=== PATIENT | male | born 1970 | race Caucasian/White ===

== ENCOUNTER 2016-06-06 15:53 | Inpatient (IN) | payer SELFPAY ==
[2016-06-06] VITALS (13 sets, daily range): BP systolic 128–182; BP diastolic 81–124; PULSE 98–178; RESP 18–20; TEMP 98.1; O2SAT 93–96
[~2016-06-06] VITALS: Ht 167.6 cm; Wt 81.5 kg
--- NOTE | 2016-06-06 16:14 | PD ---
HPI Chief Complaint: Respiratory Symptoms Time Seen by Provider: 16:14 Travel History International Travel<30 days: No Contact w/Intl Traveler<30days: No Traveled to known affect area: No History of Present Illness HPI 46-year-old male with no significant medical history presents to emergency department for evaluation of shortness of breath worsening over the last 2 weeks. He thought that this was secondary to allergies or maybe. He had taken some Mucinex but his symptoms did not resolve. Patient states he has felt his heart was racing. He is unable to lie flat without significant shortness of breath. Has a pain in his right neck and shoulder that is intermittent. Denies any recent illnesses, fever, or chills. PFSH Past Medical History Medical History: Denies Significant Hx Diminished Hearing: No Tetanus Vaccination: > 5 Years Influenza Vaccination: No Past Surgical History Appendectomy: Yes Social History Alcohol Use: No Tobacco Use: Yes Substance Use: Yes (JONATHAN) Allergies-Medications (Allergen,Severity, Reaction): Coded Allergies: No Known Allergies (Unverified , 06/06/16) Reported Meds & Prescriptions Reported Meds & Active Scripts Active No Active Prescriptions or Reported Medications Review of Systems Except as stated in HPI: all other systems reviewed are Neg Physical Exam Narrative GENERAL: Well-nourished male patient, lying in bed, appears very fearful but is in no acute distress SKIN: Warm and dry. HEAD: Atraumatic. Normocephalic. EYES: Pupils equal and round. No scleral icterus. No injection or drainage. ENT: No nasal bleeding or discharge. Mucous membranes pink and moist. NECK: Trachea midline. No JVD. CARDIOVASCULAR: Supraventricular rate. RESPIRATORY: No accessory muscle use. Diminished to auscultation. Breath sounds equal bilaterally. GASTROINTESTINAL: Abdomen soft, non-tender, nondistended. Hepatic and splenic margins not palpable. MUSCULOSKELETAL: Extremities without clubbing, cyanosis. 1+ bilateral lower extremity edema. No obvious deformities. NEUROLOGICAL: Awake and alert. No obvious cranial nerve deficits. Motor grossly within normal limits. Five out of 5 muscle strength in the arms and legs. Normal speech. PSYCHIATRIC: Appropriate mood and affect; insight and judgment normal. Data Data Last Documented VS Vital Signs Date Time Temp Pulse Resp B/P Pulse Ox O2 Delivery O2 Flow Rate FiO2 06/06/16 17:23 112 20 142/89 96 Nasal Cannula 3 06/06/16 15:59 98.1 Orders Electrocardiogram (06/06/16 ) Basic Metabolic Panel (Bmp) (06/06/16 16:13) B-Type Natriuretic Peptide (06/06/16 16:13) Ckmb (Isoenzyme) Profile (06/06/16 16:13) Complete Blood Count With Diff (06/06/16 16:13) D-Dimer (06/06/16 16:13) Magnesium (Mg) (06/06/16 16:13) Prothrombin Time / Inr (Pt) (06/06/16 16:13) Act Partial Throm Time (Ptt) (06/06/16 16:13) Troponin I (06/06/16 16:13) Chest, Single Ap (06/06/16 16:13) Ecg Monitoring (06/06/16 16:13) Bilateral Bp Monitoring (06/06/16 16:13) Iv Access Insert/Monitor (06/06/16 16:13) Oximetry (06/06/16 16:13) Oxygen Administration (06/06/16 16:13) Sodium Chloride 0.9% Flush (Ns Flush) (06/06/16 16:15) Diltiazem Inj (Cardizem Inj) (06/06/16 16:15) Thyroid Stimulating Hormone (06/06/16 16:19) Electrocardiogram (06/06/16 ) Diltiazem Inj (Cardizem Inj) (06/06/16 16:45) Vital Signs (Adult) Q15MX4,Q4H (06/06/16 17:05) Radio Electronics Technician / Telemetry HAILE.Q8H (06/06/16 17:05) Cardiac Rhythm HAILE.Q8H (06/06/16 17:05) ^ Notify Dr: Other (06/06/16 17:05) Diltiazem Inj (Cardizem Inj) (06/06/16 17:15) CKMB (06/06/16 16:20) CKMB% (06/06/16 16:20) Ventilation & Perfusion Scan (06/06/16 ) Admit Order (Ed Use Only) (06/06/16 18:33) Labs Laboratory Tests Test 06/06/16 16:20 White Blood Count 11.2 TH/MM3 Red Blood Count 4.75 MIL/MM3 Hemoglobin 16.0 GM/DL Hematocrit 46.8 % Mean Corpuscular Volume 98.5 FL Mean Corpuscular Hemoglobin 33.7 PG Mean Corpuscular Hemoglobin 34.2 % Concent Red Cell Distribution Width 14.0 % Platelet Count 274 TH/MM3 Mean Platelet Volume 9.5 FL Neutrophils (%) (Auto) 72.4 % Lymphocytes (%) (Auto) 19.3 % Monocytes (%) (Auto) 6.8 % Eosinophils (%) (Auto) 0.4 % Basophils (%) (Auto) 1.1 % Neutrophils # (Auto) 8.1 TH/MM3 Lymphocytes # (Auto) 2.2 TH/MM3 Monocytes # (Auto) 0.8 TH/MM3 Eosinophils # (Auto) 0.0 TH/MM3 Basophils # (Auto) 0.1 TH/MM3 CBC Comment DIFF FINAL Differential Comment Prothrombin Time 13.4 SEC Prothromb Time International 1.2 RATIO Ratio Activated Partial 28.0 SEC Thromboplast Time D-Dimer Quantitative (PE/DVT) 1.15 MG/L FEU Sodium Level 138 MEQ/L Potassium Level 4.3 MEQ/L Chloride Level 100 MEQ/L Carbon Dioxide Level 21.9 MEQ/L Anion Gap 16 MEQ/L Blood Urea Nitrogen 11 MG/DL Creatinine 1.50 MG/DL Estimat Glomerular Filtration 51 ML/MIN Rate Random Glucose 93 MG/DL Calcium Level 9.4 MG/DL Magnesium Level 1.9 MG/DL Total Creatine Kinase 107 U/L Creatine Kinase MB 2.6 NG/ML Troponin I 0.03 NG/ML B-Type Natriuretic Peptide 553 PG/ML Thyroid Stimulating Hormone 3.540 uIU/ML 3rd Gen [facility] Medical Decision Making Medical Screen Exam Complete: Yes Emergency Medical Condition: Yes Medical Record Reviewed: Yes Differential Diagnosis New-onset A. fib versus A. fib with RVR versus SVT versus ACS versus CHF versus electrolyte abnormality Narrative Course 46-year-old male presents emergency department for evaluation and heart rate racing 2 weeks. Patient heart rate 160s to 170s. Rhythm was unable to decipher clearly at that time. He discussed the patient my attending physician Dr. Evans. Patient was given bolus of Cardizem. His rate slowed to 140s. Repeat EKG shows A. fib with RVR. Patient was given another bolus of Cardizem. CBC and CMP are without acute concern. Patient does have renal insufficiency. Troponin is 0.03. BNP is 553. Chest x-ray shows a small right pleural-based opacity likely representing a small pleural effusion with associated atelectasis at the right base. Mild enlarged cardiac silhouette. After 2 boluses of Cardizem, patient's heart rate remains greater than 120 bpm consistently. Patient is started on Cardizem drip. Ddimer is elevated 1.15. Due to renal insufficiency, VQ scan is ordered. I discussed the pt with Dr. العراقي. [facility]. Diagnosis Primary Impression: New onset a-fib Additional Impressions: Atrial fibrillation with RVR Dyspnea Qualified Code: R06.02 - Shortness of breath Elevated d-dimer Admitting Information Admitting Physician Requests: Admit Scripts No Active Prescriptions or Reported Meds Condition: Stable Thelma Yap Jun 06, 2016 16:14
[2016-06-06] MEDS ORDERED: DILTIAZEM HCL 25 MG/5 ML VIAL IV PUSH ONE (16:15)
[2016-06-06] MEDS ORDERED: SODIUM CHLORIDE 0.9% FLUSH 5 ML FLUSH IVF PRN (16:15)
--- NOTE | 2016-06-06 16:23 | PD ---
Data Data Last Documented VS Vital Signs Date Time Temp Pulse Resp B/P Pulse Ox O2 Delivery O2 Flow Rate FiO2 06/06/16 16:16 166 20 177/120 96 Nasal Cannula 3 171/124 06/06/16 15:59 98.1 Orders Electrocardiogram (06/06/16 ) Basic Metabolic Panel (Bmp) (06/06/16 16:13) B-Type Natriuretic Peptide (06/06/16 16:13) Ckmb (Isoenzyme) Profile (06/06/16 16:13) Complete Blood Count With Diff (06/06/16 16:13) D-Dimer (06/06/16 16:13) Magnesium (Mg) (06/06/16 16:13) Prothrombin Time / Inr (Pt) (06/06/16 16:13) Act Partial Throm Time (Ptt) (06/06/16 16:13) Troponin I (06/06/16 16:13) Chest, Single Ap (06/06/16 16:13) Ecg Monitoring (06/06/16 16:13) Bilateral Bp Monitoring (06/06/16 16:13) Iv Access Insert/Monitor (06/06/16 16:13) Oximetry (06/06/16 16:13) Oxygen Administration (06/06/16 16:13) Sodium Chloride 0.9% Flush (Ns Flush) (06/06/16 16:15) Diltiazem Inj (Cardizem Inj) (06/06/16 16:15) Thyroid Stimulating Hormone (06/06/16 16:19) MDM Supervised Visit with CAT: Yes Interpretation(s) EKG shows a narrow complex tachycardia with a rate of 170 Narrative Course I, Dr. Evans, have reviewed the advance practice practitioner's documentation and am in agreement, met with the patient face to face, made the diagnosis, and the medical decision making was done by me. *My assessment and Findings: Patient has a narrow complex tachycardia. He appears very frightened. Scripts No Active Prescriptions or Reported Meds Yadira Evans MD Jun 06, 2016 16:23
[2016-06-06] MEDS ORDERED: DILTIAZEM HCL 25 MG/5 ML VIAL IV PUSH PRN (16:45)
[2016-06-06 16:54] LABS: AUTOMATED NEUTROPHIL # 8.1 TH/MM3 (1.8-7.7); BASOPHIL # 0.1 TH/MM3 (0-0.2); BASOPHIL % 1.1 % (0.0-2.0); EOSINOPHIL % 0.4 % (0.0-4.0); HEMATOCRIT 46.8 % (39.0-51.0); HEMO FLAGS DIFF FINAL; LYMPH % 19.3 % (9.0-44.0); LYMPHOCYTE # 2.2 TH/MM3 (1.0-4.8); MEAN CELL VOLUME 98.5 FL (80.0-100.0); MEAN CORPUSCULAR HEMOGLOBIN 33.7 PG (27.0-34.0); MEAN CORPUSCULAR HGB CONC 34.2 % (32.0-36.0); MONO % 6.8 % (0.0-8.0); NEUT % 72.4 % (16.0-70.0); PLATELET COUNT 274 TH/MM3 (150-450); RED BLOOD COUNT 4.75 MIL/MM3 (4.50-5.90); WHITE BLOOD COUNT 11.2 TH/MM3 (4.0-11.0)
--- NOTE | 2016-06-06 17:01 | RADRPT ---
EXAM DATE/TIME: 06/06/2016 16:20 [facility] COMPARISON: No previous studies available for comparison. INDICATIONS : Short of Breath, Chest Pain. MEDICAL HISTORY : None. SURGICAL HISTORY : None. ENCOUNTER: Initial ACUITY: 2 weeks PAIN SCORE: 3/10 LOCATION: Bilateral chest FINDINGS: Portable AP view of the chest demonstrates mildly enlarged cardiac silhouette. Lungs are mildly under inflated. There is a small right pleural-based opacity. No pneumothorax is visualized. Bones and soft tissues demonstrate no acute finding. CONCLUSION: 1. Small right pleural-based opacity likely representing a small pleural effusion with associated ate lectasis at the right base. 2. Mildly enlarged cardiac silhouette. Emerson Carvalho MD on June 06, 2016 at 16:59 Board Certified Radiologist. This report was verified electronically.
[2016-06-06 17:17] LABS: ANION GAP 16 MEQ/L (5-15); BICARBONATE 21.9 MEQ/L (21.0-32.0); BLOOD UREA NITROGEN 11 MG/DL (7-18); CHLORIDE 100 MEQ/L (98-107); GLOMERULAR FILTRATION RATE 51 ML/MIN (>89); MAGNESIUM 1.9 MG/DL (1.5-2.5); POTASSIUM 4.3 MEQ/L (3.5-5.1); SODIUM (NA) 138 MEQ/L (136-145)
[2016-06-06 17:21] LABS: CREATINE KINASE 107 U/L (39-308)
[2016-06-06 17:22] LABS: INTERNATIONAL NORMALIZED RATIO 1.2 RATIO; PROTHROMBIN TIME - PATIENT 13.4 SEC (9.8-11.6)
[2016-06-06] MEDS: DILTIAZEM INJ 125 MG in SODIUM CHLORIDE 0.9% INJ 100 ML IV SCH (17:29)
[2016-06-06 17:34] LABS: CKMB 2.6 NG/ML (0.5-3.6)
--- NOTE | 2016-06-06 19:25 | HHI.HP ---
[facility] No Primary Care Physician Admission Diagnosis dyspnea; new onset AFib; Afib c RVR; elevated Ddimer; elevated BNP Diagnoses: (1) New onset a-fib Diagnosis: Principal (2) Elevated d-dimer Diagnosis: Principal (3) Elevated brain natriuretic peptide (BNP) level Diagnosis: Principal (4) Pleural effusion Diagnosis: Principal (5) Renal insufficiency Diagnosis: Principal Travel History International Travel<30 Days: No Contact w/Intl Traveler <30 Da: No Traveled to Known Affected Are: No History of Present Illness This is a 46-year-old male with no significant PMH who presented to the ER with complaints of SOB x2 wks. States has been having nasal congestion x2 wks, started taking Mucinex w/ no improvement, now w/ worsening SOB and c/o palpitations. Denies cough, chest pain, fever or sick contacts. On arrival, noted to be in Afib w/ RVR, HR 170's, BP 177/120 s/p Cardizem IV x2 doses w/ some improvement, currently on Cardizem gtt. No h/o A-fib. WBC 11.2. Creatinine 1.50, no previous labs for comparison. BNP 553. D-dimer 1.15, V/Q Scan pending. CXR with small right pleural based opacity likely small pleural effusion with atelectasis at right base, mildly enlarged cardiac silhouette. Review of Systems ROS: 14 point review of systems otherwise negative. Past Family Social History Past Medical History PMH: None Past Surgical History PAST SURGICAL HISTORY: Appendectomy Allergies: Coded Allergies: No Known Allergies (Unverified , 06/06/16) Family History PAST FAMILY HISTORY: Reviewed. No h/o DM or CAD Social History PAST SOCIAL HISTORY: Negative for alcohol. Smokes 1ppd. Positive for Marijuana. Physical Exam Vital Signs Vital Signs Date Time Temp Pulse Resp B/P Pulse Ox O2 Delivery O2 Flow Rate FiO2 06/06/16 18:54 135 20 149/96 96 Nasal Cannula 3 06/06/16 17:23 112 20 142/89 96 Nasal Cannula 3 06/06/16 16:59 105 20 132/86 95 Nasal Cannula 3 06/06/16 16:28 114 20 128/81 96 Nasal Cannula 06/06/16 16:16 166 20 177/120 96 Nasal Cannula 3 171/124 06/06/16 16:16 96 Nasal Cannula 3 06/06/16 16:16 20 96 Nasal Cannula 3 06/06/16 16:04 168 20 96 Nasal Cannula 3 06/06/16 16:04 178 20 177/120 06/06/16 15:59 98.1 162 18 152/100 96 Physical Exam PE: GENERAL: Middle-aged male in no acute distress. HEENT: PERRLA, EOMI. No scleral icterus or conjunctival pallor. No lid lag or facial droop. CARDIOVASCULAR: Irregularly irregular, in A. fib, HR 120s. No obvious murmurs to auscultation. No chest tenderness to palpation. RESPIRATORY: No obvious rhonchi or wheezing. Clear to auscultation. Breath sounds equal bilaterally. GASTROINTESTINAL: Abdomen soft, non-tender, nondistended. BS normal. MUSCULOSKELETAL: Extremities without clubbing, cyanosis. 1+ pitting edema. No obvious deformities. NEUROLOGICAL: Awake, alert and oriented x4. No focal neurologic deficits. Moving both upper and lower extremities spontaneously. Laboratory Laboratory Tests Test 06/06/16 16:20 White Blood Count 11.2 Red Blood Count 4.75 Hemoglobin 16.0 Hematocrit 46.8 Mean Corpuscular Volume 98.5 Mean Corpuscular Hemoglobin 33.7 Mean Corpuscular Hemoglobin 34.2 Concent Red Cell Distribution Width 14.0 Platelet Count 274 Mean Platelet Volume 9.5 Neutrophils (%) (Auto) 72.4 Lymphocytes (%) (Auto) 19.3 Monocytes (%) (Auto) 6.8 Eosinophils (%) (Auto) 0.4 Basophils (%) (Auto) 1.1 Neutrophils # (Auto) 8.1 Lymphocytes # (Auto) 2.2 Monocytes # (Auto) 0.8 Eosinophils # (Auto) 0.0 Basophils # (Auto) 0.1 CBC Comment DIFF FINAL Differential Comment Prothrombin Time 13.4 Prothromb Time International 1.2 Ratio Activated Partial 28.0 Thromboplast Time D-Dimer Quantitative (PE/DVT) 1.15 Sodium Level 138 Potassium Level 4.3 Chloride Level 100 Carbon Dioxide Level 21.9 Anion Gap 16 Blood Urea Nitrogen 11 Creatinine 1.50 Estimat Glomerular Filtration 51 Rate Random Glucose 93 Calcium Level 9.4 Magnesium Level 1.9 Total Creatine Kinase 107 Creatine Kinase MB 2.6 Troponin I 0.03 B-Type Natriuretic Peptide 553 Thyroid Stimulating Hormone 3.540 3rd Gen Result Diagram: 06/06/16 1620 06/06/16 1620 Assessment and Plan Problem List: (1) New onset a-fib ICD Code: I48.91 Status: Acute (2) Elevated d-dimer ICD Code: R79.89 Status: Acute (3) Elevated brain natriuretic peptide (BNP) level ICD Code: R79.89 Status: Acute (4) Pleural effusion ICD Code: J90 Status: Acute (5) Renal insufficiency ICD Code: N28.9 Status: Acute Assessment and Plan A/P: 1. New Onset Afib w/ RVR: on arrival, noted to be in A-fib w/ RVR, HR 170's, s /p Cardizem IV x2, currently on Cardizem gtt, HR 120-130's. Lopressor IV, consult Cardiology, check U/a, Urine Drug Screen. D-dimer elevated, V/Q ordered by ER physician, currently pending, will follow. Evidence of heart failure on exam/labs/imaging-possibly trigger for A-fib. TSH normal. Trop 0.03. 2. Elevated D-dimer: 1.15, possibly related to leukocytosis, however will r/o PE-V/Q scan ordered in ER, currently pending. 3. Elevated BNP: BNP 553. CXR w/ small right pleural effusion, will check Echo to eval for cardiomyopathy. Repeat BNP in am. 4. Pleural Effusion: Small right pleural effusion on CXR w/ enlarged cardiac silhouette, images reviewed by me. Evidence of heart failure on exam/labs/ imaging as above, unclear etiology. Check Echo, Check U/a and Urine Drug Screen , TSH normal. 5. Renal Insufficiency: Creatinine 1.50, no previous labs for comparison. Check U/a, caution w/ IVF in light of clinical CHF, repeat labs in am. 6. DVT Prophylaxis: SCD/Teds. 7. Social work for d/c planning as needed. 8. Case discussed w/ day physician at length. Physician Certification 2 Midnight Certification Type: Admission for Inpatient Services Order for Inpatient Services The services are ordered in accordance with Medicare regulations or non- Medicare payer requirements, as applicable. In the case of services not specified as inpatient-only, they are appropriately provided as inpatient services in accordance with the 2-midnight benchmark. Estimated LOS (days): 2 days is the estimated time the patient will need to remain in the hospital, assuming treatment plan goals are met and no additional complications. Post-Hospital Plan: Not yet determined Gretchen Peraza MD Jun 06, 2016 19:25
[2016-06-06] MEDS ORDERED: ACETAMINOPHEN 325 MG TAB PO PRN (19:30)
[2016-06-06] MEDS ORDERED: MORPHINE SULFATE 4 MG/ML INJ IV PRN (19:30)
[2016-06-06] MEDS ORDERED: BISACODYL 10 MG SUPP PR PRN (19:30)
[2016-06-06] MEDS ORDERED: SODIUM CHLORIDE 0.9% FLUSH 5 ML FLUSH FLUSH PRN (19:30)
[2016-06-06] MEDS ORDERED: ONDANSETRON HCL 4 MG/2 ML VIAL IVP PRN (19:30)
[2016-06-06] MEDS ORDERED: METOPROLOL TARTRATE 5 MG/5 ML VIAL IV PUSH ONE (20:00)
--- NOTE | 2016-06-06 20:47 | RADRPT ---
EXAM DATE/TIME: 06/06/2016 20:08 [facility] COMPARISON: No previous studies available for comparison. INDICATIONS : Shortness of breath for 2 weeks. Smoker. DOSE: 8.1 mCi Tc99m MAA IV 1.1 mCi Tc99m DTPA aerosol MEDICAL HISTORY : None SURGICAL HISTORY : Appendectomy. ENCOUNTER: Initial ACUITY: 2 weeks PAIN SCALE: 3/10 LOCATION: Bilateral chest TECHNIQUE: Following five minutes of tidal breathing of DTPA aerosol, planar images of the lungs were performed in eight projections. The patient was then injected with MAA, and eight-view perfusion scan was perf ormed. FINDINGS: There is a homogeneous pattern of aerosol delivery to the periphery of both lungs. No focal ventilat ory defects are seen. The perfusion lung scan demonstrates a homogenous pattern of uptake in both lungs. No segmental or s ubsegmental defects are seen. CONCLUSION: Homogeneous perfusion. Study is low probability for pulmonary embolus. Emerson Bower MD on June 06, 2016 at 20:45 Board Certified Radiologist. This report was verified electronically.
[2016-06-06] MEDS: SODIUM CHLORIDE 0.9% FLUSH 5 ML FLUSH FLUSH SCH (21:00)
[2016-06-06] MEDS: BUDESONIDE-FORMOTEROL 160/4.5 MCG INHALER INH SCH (22:43)
[2016-06-06] MEDS: SODIUM CHLOR 0.9% 1000 ML INJ 1,000 ML IV SCH (23:15)
[2016-06-07] VITALS (23 sets, daily range): BP systolic 112–168; BP diastolic 83–117; PULSE 75–159; RESP 16–31; TEMP 98.5–98.6; O2SAT 93–96
[2016-06-07] MEDS: DILTIAZEM INJ 125 MG in SODIUM CHLORIDE 0.9% INJ 100 ML IV SCH (03:19)
[2016-06-07 04:44] LABS: BACTERIA, URINE RARE /hpf; BLOOD, URINE NEG (NEG); GLUCOSE,URINE NEG (NEG); HYALINE CAST, URINE 4 /lpf (RARE); KETONE, URINE 10 mg/dL (NEG); MUCUS URINE FEW /lpf (OCC); NITRITE,URINE NEG (NEG); URINE COLOR YELLOW (YELLW/STRAW)
[2016-06-07 04:45] LABS: COMMENT (UR) CULT NOT INDICATED; CULTURE IF INDICATED CULT NOT INDICATED
[2016-06-07 04:46] LABS: BARBITURATES, URINE NEG (NEG); COCAINE, URINE NEG (NEG)
[2016-06-07 04:48] LABS: AMPHETAMINE, URINE NEG (NEG)
[2016-06-07] MEDS: SODIUM CHLOR 0.9% 1000 ML INJ 1,000 ML IV SCH ×3 (05:20→21:52)
[2016-06-07 06:20] LABS: AUTOMATED NEUTROPHIL # 6.1 TH/MM3 (1.8-7.7); BASOPHIL # 0.1 TH/MM3 (0-0.2); BASOPHIL % 0.7 % (0.0-2.0); EOSINOPHIL % 0.5 % (0.0-4.0); HEMATOCRIT 41.4 % (39.0-51.0); HEMO FLAGS DIFF FINAL; LYMPHOCYTE # 1.5 TH/MM3 (1.0-4.8); MEAN CELL VOLUME 97.8 FL (80.0-100.0); MEAN CORPUSCULAR HEMOGLOBIN 34.4 PG (27.0-34.0); MEAN CORPUSCULAR HGB CONC 35.2 % (32.0-36.0); MONO % 9.3 % (0.0-8.0); NEUT % 71.5 % (16.0-70.0); PLATELET COUNT 217 TH/MM3 (150-450); RED BLOOD COUNT 4.24 MIL/MM3 (4.50-5.90); RED CELL DISTRIBUTION WIDTH 14.1 % (11.6-17.2); WHITE BLOOD COUNT 8.5 TH/MM3 (4.0-11.0)
[2016-06-07 06:50] LABS: ALKALINE PHOSPHATASE 57 U/L (45-117); ALT (GPT) 22 U/L (12-78); ANION GAP 15 MEQ/L (5-15); AST (GOT) 13 U/L (15-37); BICARBONATE 18.5 MEQ/L (21.0-32.0); BLOOD UREA NITROGEN 12 MG/DL (7-18); CHLORIDE 104 MEQ/L (98-107); GLOMERULAR FILTRATION RATE 60 ML/MIN (>89); POTASSIUM 4.1 MEQ/L (3.5-5.1); SODIUM (NA) 137 MEQ/L (136-145); TOTAL BILIRUBIN ADULT 1.6 MG/DL (0.2-1.0)
[2016-06-07] MEDS ORDERED: SODIUM CHLORIDE 0.9% FLUSH 5 ML FLUSH IVF PRN (08:30)
[2016-06-07] MEDS ORDERED: SODIUM CHLORIDE 0.9% FLUSH 5 ML FLUSH IVF SCH (09:00)
[2016-06-07] MEDS: ASPIRIN EC 325 MG TABEC PO SCH (10:03)
[2016-06-07] MEDS: DILTIAZEM HCL 60 MG TAB PO SCH ×4 (10:03→21:50)
[2016-06-07] MEDS: DIGOXIN 0.5 MG/2 ML VIAL IV PUSH SCH (10:04)
[2016-06-07] MEDS: SODIUM CHLORIDE 0.9% FLUSH 5 ML FLUSH FLUSH SCH (10:04)
--- NOTE | 2016-06-07 12:05 | EC ---
Study Study Date:06/07/2016 STUDY CONCLUSIONS SUMMARY - Left ventricle: The cavity size was dilated. Wall thickness was normal. Systolic function was severely reduced by visual assessment. The estimated ejection fraction was in the range of 25% to 30%. Diffuse hypokinesis. - Aortic valve: Valve area: 2.09cm^2 (Vmax). - Mitral valve: Mild regurgitation. - Tricuspid valve: Mild regurgitation. - Pulmonary arteries: PA peak pressure: 37mm Hg (S). If LV function is below 40, please consider prescribing an ACEI or ARB or document rationale for non-use. PROCEDURE DATA STUDY STATUS: Elective. Procedure: Transthoracic echocardiography. Image quality was good. Scanning was performed from the parasternal, apical, and subcostal acoustic windows. Study completion: The patient tolerated the procedure well. Transthoracic echocardiography. M-mode, complete 2D, complete spectral Doppler, and color Doppler. Height: Height: 66in. Weight: Weight: 170.6lb. Body mass index: BMI: 27.6kg/m^2. Body surface area: BSA: 1.87m^2. Patient status: Inpatient. CARDIAC ANATOMY LEFT VENTRICLE: The cavity size was dilated. Wall thickness was normal. Systolic function was severely reduced by visual assessment. The estimated ejection fraction was in the range of 25% to 30%. Diffuse hypokinesis. AORTIC VALVE: Trileaflet; normal thickness leaflets. Doppler: Transvalvular velocity was within the normal range. There was no stenosis. No regurgitation. Valve area: 2.09cm^2 (Vmax). Indexed valve area: 1.12cm^2/m^2 (Vmax). AORTA: Aortic root: The aortic root was normal in size. MITRAL VALVE: Structurally normal valve. Doppler: Transvalvular velocity was within the normal range. There was no evidence for stenosis. Mild regurgitation. LEFT ATRIUM: The atrium was at the upper limits of normal in size. RIGHT VENTRICLE: The cavity size was normal. Wall thickness was normal. PULMONIC VALVE: Doppler: Transvalvular velocity was within the normal range. There was no evidence for stenosis. No regurgitation. TRICUSPID VALVE: Structurally normal valve. Doppler: Transvalvular velocity was within the normal range. Mild regurgitation. PULMONARY ARTERY: Systolic pressure was within the normal range. RIGHT ATRIUM: The atrium was normal in size. PERICARDIUM: There was no pericardial effusion. SYSTEMIC VEINS: Inferior vena cava: The vessel was normal in size. Patient weight: 170.6lb _Ejection fraction:_ 65-75% _Fractional shortening:_ 32% up to 5Kg 5-11.5Kg 11.6-22.9Kg 23-45Kg 45-57Kg Aortic Root 7-13 <17 13-22 17-27 17-27 LA diam 6-13 <23 24-38 33-47 37-40 RVID 10-17 7-15 7-15 7-18 8-17 LVIDd 12-22 <32 24-38 33-47 37-40 LVPW 2-4 3-6 5-7 6-8 7-8 IVS 2-4 3-6 5-7 6-8 7-8 BASIC MEASUREMENTS ADULT NORMAL Left ventricle LV internal dimension, ED, chordal *53.7 mm 43-52 level, PLAX LV internal dimension, ES, chordal *47.4 mm 23-38 level, PLAX Fractional shortening, chordal level, *12 % >29 PLAX LV posterior wall thickness, ED 10.5 mm IVS/LVPW ratio, ED 1.01 <1.3 Ventricular septum Septal thickness, ED 10.6 mm Aortic valve Leaflet separation 23 mm 15-26 BASIC MEASUREMENTS ADULT NORMAL Aortic valve Leaflet separation 23 mm 15-26 Aorta Root diameter, ED 31 mm 20-37 Left atrium Anterior-posterior dimension, ES 34 mm 19-40 Anterior-posterior dimension index, ES 1.82 cm/m^2 <2.2 LA/aortic root ratio 1.1 DOPPLER MEASUREMENTS ADULT NORMAL Main pulmonary artery Pressure, S *37 mm Hg =30 Aortic valve Peak velocity, S 134 cm/s Valve area, Vmax 2.09 cm^2 Valve area index, Vmax 1.12 cm^2/m^2 Mitral valve Maximal regurgitant velocity 373 cm/s Tricuspid valve Regurgitant peak velocity 278 cm/s Peak RV-RA gradient, S 31 mm Hg Maximal regurgitant velocity 278 cm/s Systemic veins Estimated CVP 10 mm Hg Right ventricle RV pressure, S *41 mm Hg <30 Pulmonic valve Peak velocity, S 95 cm/s LEGEND: Mean values are shown as u=mean value. Asterisk (*) gleason values outside specified normal range. Prepared and signed by Ronan Rosen [id number]
--- NOTE | 2016-06-07 12:37 | MB ---
cc: CEE OCONNELL MD DATE OF CONSULTATION: 06/07/2016 INDICATION Atrial fibrillation. HISTORY OF PRESENT ILLNESS A 46-year-old gentleman without significant past medical history is had progressive shortness of breath now for the past 2 weeks. Started initially with some nasal sinus congestion and progress with associated palpitations, shortness of breath and cough. Came into the emergency department's noted to have new onset atrial fibrillation with rapid ventricular rate. Heart rate was as high as 170 beats per minute. He did receive Cardizem IV bolus x2 in addition to initiation of a Cardizem drip. Despite that he remains quite tachycardic. Has no prior history of any heart disease. No history of any arrhythmias. He had a small right pleural effusion and opacity suggestive of possible infiltrate at the right base. We are consulted for further recommendations. PAST MEDICAL HISTORY None. PAST SURGICAL HISTORY Appendectomy. ALLERGIES None. FAMILY HISTORY As any family history of coronary sudden cardiac . SOCIAL HISTORY Denies any alcohol. Does report occasional marijuana use. Smokes a pack a day. REVIEW OF SYSTEMS system 12-point review of some was performed a unless otherwise noted is present illness. PHYSICAL EXAMINATION VITAL SIGNS: Temperature 98, heart rates 112-135 beats per minute, blood pressure 149/96 mmHg. IN GENERAL: Alert x3 in no acute distress. HEAD, EYES, EARS, NOSE, AND THROAT: Exam shows pupils reactive to light, his extraocular attack elevation in venous distension. NECK: No thyromegaly or lymphadenopathy. No carotid bruits. LUNGS: Clear to auscultation bilaterally. CARDIOVASCULAR SYSTEM: Cardiovascular and irregular rhythm. EXTREMITIES: Without murmurs, rubs or gallops. ABDOMEN: Nontender, nondistended. Good bowel sounds. No past splenomegaly. EXTREMITIES: No clubbing, cyanosis or edema. Good peripheral pulses. NEUROLOGIC: Cranial nerves intact. Motor sensory grossly intact. LABORATORY DATA WBC 8.5 hemoglobin 14.6, platelet count 217, INR is 1.27 37,004.1 +104, bicarb 16, BUN is 12, creatinine 1.29, BNP is 389, TSH 3.54. RADIOLOGIC: Electrocardiogram shows atrial fibrillation. No significant ischemic changes. ASSESSMENT 1. New onset atrial fibrillation. 2. shortness of breath, possible pneumonia. 3. hypertension. PLAN: A first evidence of arrhythmia for this gentleman. Likely due to increased adrenergic tone secondary to his infection. He is on Cardizem but still not quite rate-controlled we will give him one-time dose of IV digoxin. Will add an oral Cardizem regimen to wean the Cardizem drip as possible. VQ scan was low probability for pulmonary embolism. He is not having any chest pain. We will follow up on 2-D echocardiogram. Once his symptoms essentially resolve he may be a candidate for an outpatient stress test. His Lester's vas score is zero and we will initiate aspirin 325 mg once a day. If he continues to be quite tachycardiac, unable to control with medical regimen may consider cardioversion. Since that time, Greater than 48 hours. He would need transesophageal echocardiogram prior to doing so. ADDENDUM: Results of echo reviewed. 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 plan for lexiscan in am to rule out ischemic etiology. MD JACKIE Woods/naz /8:39 AM /11:59 AM ZAC
--- NOTE | 2016-06-07 17:33 | HHI.PR ---
Subjective Remarks Seen earlier today. Patient says he is more sob after he is sleeping. He needs 2 pillows and elevated bed. he has trace LE edema. No feevr or chills. Has a nonproductive cough. No pain. Has diarrhea on/off. Denies having chest pain, fever or chills. No diaphoresis. No lightheadedness, doesn't feel palpitations. Says she has tremors from alcohol withdrawals. Objective Vitals Vital Signs Date Time Temp Pulse Resp B/P Pulse Ox O2 Delivery O2 Flow Rate FiO2 06/07/16 10:30 114 18 95 Nasal Cannula 3 06/07/16 10:00 138 28 145/106 95 Nasal Cannula 3 06/07/16 09:00 145 20 163/109 95 Nasal Cannula 3 06/07/16 08:00 159 31 147/99 96 Nasal Cannula 3 06/07/16 07:12 97 Nasal Cannula 3 06/07/16 07:00 98.6 111 16 139/95 95 Nasal Cannula 3 06/07/16 03:00 116 20 166/110 93 Nasal Cannula 3 06/07/16 02:00 108 20 142/107 95 Nasal Cannula 3 06/07/16 01:00 132 20 157/106 94 Nasal Cannula 3 06/07/16 00:00 106 20 141/97 95 Nasal Cannula 3 06/06/16 23:30 102 20 153/117 93 Nasal Cannula 3 06/06/16 23:00 114 20 146/93 94 Nasal Cannula 3 06/06/16 22:30 98 20 144/96 96 Nasal Cannula 3 06/06/16 22:00 112 20 144/96 96 Nasal Cannula 3 06/06/16 21:30 112 20 150/112 96 Nasal Cannula 3 06/06/16 21:00 106 20 182/96 95 Nasal Cannula 3 06/06/16 18:54 135 20 149/96 96 Nasal Cannula 3 Result Diagram: 06/07/16 0542 06/07/16 0542 Imaging Last Impressions Chest X-Ray 06/06/16 1613 Signed Impressions: Service Date/Time: May 16:20 - CONCLUSION: 1. Small right pleural-based opacity likely representing a small pleural effusion with associated atelectasis at the right base. 2. Mildly enlarged cardiac silhouette. Emerson Carvalho MD Lung Scan-VQ Nuclear Medicine 06/06/16 0000 Signed Impressions: Service Date/Time: May 20:08 - CONCLUSION: Homogeneous perfusion. Study is low probability for pulmonary embolus. Emerson Bower MD Objective Remarks GENERAL: Middle-aged male, well nourished, well developed, with tremors, anxious. HEENT: PERRLA, EOMI. No scleral icterus or conjunctival pallor. No lid lag or facial droop. CARDIOVASCULAR: Irregularly irregular, in A. fib, HR 120s. No obvious murmurs to auscultation. No chest tenderness to palpation. RESPIRATORY: Decreased breath sounds, crackles bibasilar. No obvious rhonchi or wheezing. GASTROINTESTINAL: Abdomen soft, non-tender, nondistended. BS normal. MUSCULOSKELETAL: Extremities without clubbing, cyanosis. 1+ pitting edema. No obvious deformities. NEUROLOGICAL: Awake, alert and oriented x4. No focal neurologic deficits. Moving both upper and lower extremities spontaneously. A/P Problem List: (1) New onset a-fib ICD Code: I48.91 Status: Acute (2) Elevated d-dimer ICD Code: R79.89 Status: Acute (3) Elevated brain natriuretic peptide (BNP) level ICD Code: R79.89 Status: Acute (4) Pleural effusion ICD Code: J90 Status: Acute (5) Renal insufficiency ICD Code: N28.9 Status: Acute Assessment and Plan New Onset Afib w/ RVR: on arrival, noted to be in A-fib w/ RVR, HR 170's, s/p Cardizem IV x2, currently on Cardizem gtt, HR 120-130's. Received Lopressor IV , started digoxin consult Cardiology, appreciate recommendations. Urine Drug Screen. D-dimer elevated, V/Q scan reviewed and no evidence of PE. Evidence of heart failure on exam/labs/imaging-possibly trigger for A-fib. TSH normal. Trop 0.03. Elevated D-dimer: 1.15, possibly related to leukocytosis. NO PE-V/Q scan neg. Elevated BNP. Congestive cardiomyopathy, likely related to EtOH use. BNP 553. CXR w/ small right pleural effusion ECHO reviewed and findings discussed with the patient patient with cardiomyopathy, reduced EF 25-30% diffuse hypokinesis. Repeat BNP in am. Plan for lexiscan 3/11/. NPO after midnight Discussed with the patient at length. Patient says she is drinking 12 pack beers daily and starte ddrinking at early age. patient has tremors and started on CIWA protocol. Counselled at length. CM-ETOH consult as well. Pleural Effusion: Small right pleural effusion on CXR w/ enlarged cardiac silhouette, images reviewed by me. Evidence of heart failure on exam/labs/ imaging as above, unclear etiology. Check Echo, Check U/a and Urine Drug Screen , TSH normal. Renal Insufficiency: Creatinine 1.50, no previous labs for comparison. Check U /a, caution w/ IVF in light of clinical CHF, repeat labs in am. DVT Prophylaxis: SCD/Teds. CM for d/c planning as needed. Discussed with patient, nurse, family Katrin Werner MD Jun 07, 2016 17:33
[2016-06-07] MEDS ORDERED: LORazepam 1 MG TAB PO PRN (17:45)
[2016-06-07] MEDS ORDERED: SODIUM CHLORIDE 0.9% FLUSH 5 ML FLUSH IV FLUSH PRN (17:45)
[2016-06-07] MEDS ORDERED: FLUMAZENIL 0.5 MG/5 ML VIAL IV PUSH PRN (17:45)
[2016-06-07] MEDS ORDERED: LORazepam 2 MG/ML VIAL IV PUSH PRN ×3 (17:45)
[2016-06-07] MEDS ORDERED: ONDANSETRON HCL 4 MG/2 ML VIAL IV PRN (17:45)
[2016-06-07] MEDS: BUDESONIDE-FORMOTEROL 160/4.5 MCG INHALER INH SCH ×2 (17:50→21:51)
[2016-06-07] MEDS: PANTOPRAZOLE SOD 40 MG DELAYED RELEASE TAB PO SCH (18:33)
[2016-06-07] MEDS: MULTIVITAMINS/MINERALS THERAPEUTIC TAB PO SCH (18:33)
[2016-06-07] MEDS: THIAMINE HCL 100 MG TAB PO SCH (18:33)
[2016-06-07] MEDS: LORazepam 2 MG/ML VIAL IV PUSH PRN (18:33)
[2016-06-07] MEDS ORDERED: FUROSEMIDE 40 MG/4 ML VIAL IV PUSH ONE (19:15)
--- NOTE | 2016-06-07 19:58 | EKG ---
Date Performed: 06/06/2016 Time Performed: 15:10:06 PTAGE: 46 years EKG: ATRIAL FIBRILLATION WITH RAPID VENTRICULAR RESPONSE NONSPECIFIC T-WAVE ABNORMALITY ABNORMAL ECG NO PREVIOUS TRACING DOCTOR: Georgi Peña Interpretating Date/Time 06/07/2016 19:57:39
--- NOTE | 2016-06-07 19:58 | EKG ---
Date Performed: 06/06/2016 Time Performed: 15:38:59 PTAGE: 46 years EKG: ATRIAL FIBRILLATION WITH RAPID VENTRICULAR RESPONSE MINIMAL VOLTAGE CRITERIA FOR LVH, CONSI BEVERLY NORMAL VARIANT MODERATE T-WAVE ABNORMALITY, CONSIDER ANTERIOR ISCHEMIA ABNORMAL ECG PREVIOUS TRACING : 06/06/2016 15.10 Compared to prior tracing no significant change DOCTOR: Georgi Peña Interpretating Date/Time 06/07/2016 19:56:46
[2016-06-07] MEDS: ACETAMINOPHEN/HYDROcodone 325 MG/5 MG TAB PO PRN (21:50)
[2016-06-07] MEDS: SODIUM CHLORIDE 0.9% FLUSH 5 ML FLUSH IV FLUSH SCH (21:51)
[2016-06-07] MEDS: LORazepam 2 MG TAB PO PRN (21:51)
[2016-06-08] VITALS (16 sets, daily range): BP systolic 112–145; BP diastolic 72–96; PULSE 70–100; RESP 20; TEMP 98–98.4; O2SAT 93–98
[2016-06-08] MEDS: DILTIAZEM INJ 125 MG in SODIUM CHLORIDE 0.9% INJ 100 ML IV SCH (02:30)
[2016-06-08 04:40] LABS: AUTOMATED NEUTROPHIL # 4.6 TH/MM3 (1.8-7.7); BASOPHIL # 0.1 TH/MM3 (0-0.2); BASOPHIL % 0.8 % (0.0-2.0); EOSINOPHIL # 0.1 TH/MM3 (0-0.4); EOSINOPHIL % 1.6 % (0.0-4.0); HEMATOCRIT 40.5 % (39.0-51.0); HEMO FLAGS DIFF FINAL; LYMPH % 19.8 % (9.0-44.0); LYMPHOCYTE # 1.3 TH/MM3 (1.0-4.8); MEAN CELL VOLUME 97.8 FL (80.0-100.0); MEAN CORPUSCULAR HEMOGLOBIN 34.1 PG (27.0-34.0); MEAN CORPUSCULAR HGB CONC 34.9 % (32.0-36.0); MONO % 9.1 % (0.0-8.0); NEUT % 68.7 % (16.0-70.0); PLATELET COUNT 194 TH/MM3 (150-450); RED BLOOD COUNT 4.14 MIL/MM3 (4.50-5.90); RED CELL DISTRIBUTION WIDTH 13.8 % (11.6-17.2); WHITE BLOOD COUNT 6.7 TH/MM3 (4.0-11.0)
[2016-06-08 05:16] LABS: ALT (GPT) 20 U/L (12-78); ANION GAP 11 MEQ/L (5-15); AST (GOT) 11 U/L (15-37); BICARBONATE 21.6 MEQ/L (21.0-32.0); BLOOD UREA NITROGEN 9 MG/DL (7-18); CHLORIDE 106 MEQ/L (98-107); GLOMERULAR FILTRATION RATE 61 ML/MIN (>89); MAGNESIUM 1.9 MG/DL (1.5-2.5); POTASSIUM 3.3 MEQ/L (3.5-5.1); SODIUM (NA) 139 MEQ/L (136-145)
[2016-06-08 05:18] LABS: ALKALINE PHOSPHATASE 57 U/L (45-117); TOTAL BILIRUBIN ADULT 1.4 MG/DL (0.2-1.0)
[2016-06-08] MEDS ORDERED: POTASSIUM CHLORIDE 10 MEQ CONTROLLED RELEASE TAB PO ONE (06:00)
[2016-06-08] MEDS: BUDESONIDE-FORMOTEROL 160/4.5 MCG INHALER INH SCH ×2 (09:09→21:00)
[2016-06-08] MEDS: THIAMINE HCL 100 MG TAB PO SCH (09:09)
[2016-06-08] MEDS: DIGOXIN 0.5 MG/2 ML VIAL IV PUSH SCH (09:09)
[2016-06-08] MEDS: FOLIC ACID 1 MG TAB PO SCH (09:09)
[2016-06-08] MEDS: ASPIRIN EC 325 MG TABEC PO SCH (09:09)
[2016-06-08] MEDS: SODIUM CHLORIDE 0.9% FLUSH 5 ML FLUSH IV FLUSH SCH ×2 (09:09→21:00)
[2016-06-08] MEDS: MULTIVITAMINS/MINERALS THERAPEUTIC TAB PO SCH (09:10)
[2016-06-08] MEDS: DILTIAZEM HCL 60 MG TAB PO SCH (09:10)
[2016-06-08] MEDS: PANTOPRAZOLE SOD 40 MG DELAYED RELEASE TAB PO SCH (09:10)
--- NOTE | 2016-06-08 09:35 | HHI.PR ---
Subjective Remarks In bed, says he has less tremors, heart rate is better controlled. Still with sob, mild LE edema. No n/v/d/c. Denies fever or chills. Objective Vitals Vital Signs Date Time Temp Pulse Resp B/P Pulse Ox O2 Delivery O2 Flow Rate FiO2 06/08/16 05:00 80 06/08/16 05:00 77 20 139/90 98 06/08/16 04:37 98.2 85 20 130/86 95 06/08/16 04:00 70 20 115/75 95 06/08/16 04:00 80 06/08/16 03:00 86 20 145/93 95 06/08/16 03:00 90 06/08/16 02:00 70 20 128/88 94 06/08/16 02:00 84 06/08/16 01:00 72 20 112/79 93 06/08/16 01:00 80 06/08/16 00:05 98.4 75 20 115/72 95 06/08/16 00:00 74 06/07/16 23:00 75 20 112/83 93 06/07/16 23:00 96 06/07/16 22:26 20 06/07/16 22:00 107 20 156/93 93 06/07/16 22:00 112 06/07/16 21:36 99 20 168/91 96 06/07/16 21:00 95 20 162/111 94 06/07/16 21:00 106 06/07/16 20:00 110 06/07/16 19:51 98.5 105 20 130/100 94 06/07/16 19:00 127 06/07/16 17:00 115 21 149/104 95 Nasal Cannula 3 06/07/16 16:00 112 25 137/105 95 Nasal Cannula 3 06/07/16 15:00 120 24 138/106 94 Nasal Cannula 3 06/07/16 14:00 114 25 150/112 95 Nasal Cannula 3 06/07/16 13:00 112 16 146/111 95 Nasal Cannula 3 06/07/16 12:00 108 18 162/101 95 Nasal Cannula 3 06/07/16 11:00 127 24 149/117 95 Nasal Cannula 3 06/07/16 10:30 114 18 95 Nasal Cannula 3 06/07/16 10:00 138 28 145/106 95 Nasal Cannula 3 I/O 06/07/16 06/07/16 06/07/16 06/08/16 06/08/16 06/08/16 07:00 15:00 23:00 07:00 15:00 23:00 Intake Total 2329 ml Output Total 3300 ml Balance -971 ml Intake Oral 650 ml IV Total 1679 ml Output Urine Total 3300 ml Emesis 0 ml # Bowel Movements 0 Result Diagram: 06/08/16 0319 06/08/16 0319 Imaging Last Impressions Chest X-Ray 06/06/16 1613 Signed Impressions: Service Date/Time: May 16:20 - CONCLUSION: 1. Small right pleural-based opacity likely representing a small pleural effusion with associated atelectasis at the right base. 2. Mildly enlarged cardiac silhouette. Emerson Carvalho MD Lung Scan-VQ Nuclear Medicine 06/06/16 0000 Signed Impressions: Service Date/Time: May 20:08 - CONCLUSION: Homogeneous perfusion. Study is low probability for pulmonary embolus. Emerson Bower MD Objective Remarks GENERAL: Middle-aged male, well nourished, well developed, with tremors, anxious. HEENT: PERRLA, EOMI. No scleral icterus or conjunctival pallor. No lid lag or facial droop. CARDIOVASCULAR: Irregularly irregular, in A. fib, HR 120s. No obvious murmurs to auscultation. No chest tenderness to palpation. RESPIRATORY: Decreased breath sounds, crackles bibasilar. No obvious rhonchi or wheezing. GASTROINTESTINAL: Abdomen soft, non-tender, nondistended. BS normal. MUSCULOSKELETAL: Extremities without clubbing, cyanosis. 1+ pitting edema. No obvious deformities. NEUROLOGICAL: Awake, alert and oriented x4. No focal neurologic deficits. Moving both upper and lower extremities spontaneously. A/P Problem List: (1) New onset a-fib ICD Code: I48.91 Status: Acute (2) Elevated d-dimer ICD Code: R79.89 Status: Acute (3) Elevated brain natriuretic peptide (BNP) level ICD Code: R79.89 Status: Acute (4) Pleural effusion ICD Code: J90 Status: Acute (5) Renal insufficiency ICD Code: N28.9 Status: Acute Assessment and Plan New Onset Afib w/ RVR: on arrival, noted to be in A-fib w/ RVR, HR 170's, s/p Cardizem IV x2, currently on Cardizem gtt, HR 120-130's. Received Lopressor IV. Currently on cardizem drip wean off cardizem drip , cardizem PO, started digoxin. Consult Cardiology, appreciate recommendations. Elevated D-dimer: 1.15, possibly related to leukocytosis. NO PE-V/Q scan neg. Evidence of heart failure on exam/labs/imaging-possibly trigger for A-fib. TSH normal. Trop 0.03. Elevated BNP. Congestive cardiomyopathy, likely related to EtOH use. BNP 553. CXR w/ small right pleural effusion ECHO reviewed and findings discussed with the patient patient with cardiomyopathy, reduced EF 25-30% diffuse hypokinesis. Repeat BNP in am. Plan for lexiscan . NPO Discussed with the patient at length. Patient says she is drinking 12 pack beers daily and started drinking at early age. Continue CIWA protocol. Counselled at length. CM-ETOH consult as well. Pleural Effusion: Small right pleural effusion on CXR w/ enlarged cardiac silhouette, images reviewed by me. Evidence of heart failure on exam/labs/ imaging as above, unclear etiology. Echo as above. TSH normal. Renal Insufficiency: Creatinine 1.50, no previous labs for comparison. Check U /a normal no UTI, caution w/ IVF in light of clinical CHF, repeat labs in am. DVT Prophylaxis: SCD/Teds. CM for d/c planning as needed. Discussed with patient, nurse Katrin Werner MD Jun 08, 2016 09:35
[2016-06-08] MEDS ORDERED: SPIRONOLACTONE 25 MG TAB PO ONE (10:15)
[2016-06-08] MEDS ORDERED: FUROSEMIDE 40 MG/4 ML VIAL IV PUSH ONE (10:15)
[2016-06-08] MEDS: LORazepam 2 MG TAB PO PRN (10:39)
--- NOTE | 2016-06-08 10:51 | PD.CARD.PN ---
Subjective Subjective Remarks Pt feels well, controlled afib on tele. Objective Medications Administered Medications Medications (Trade) Dose Ordered Sig/Ade Route PRN Reason Start Time Stop Time Status Last Admin Dose Admin Diltiazem HCl 27 mg 27 mg ONCE PRN IV PUSH RESPONSE 06/06/16 16:45 06/06/16 16:55 Diltiazem HCl 125 mg/Sodium Chloride 125 ml @ 0 mls/hr TITRATE IV 06/06/16 17:15 06/08/16 02:30 Sodium Chloride (NS 1000 ml Inj) 1,000 ml @ 100 mls/hr Q10H IV 06/06/16 19:20 06/07/16 21:52 Acetaminophen/ Hydrocodone Bitart ([place] 5-325 Mg) 1 tab Q4H PRN PO PAIN SCALE 3 TO 5 06/06/16 19:30 06/07/16 21:50 Budesonide/ Formoterol Fumarate (Symbicort 160-4.5 Inh) 2 puff Q12HR INH 06/06/16 21:00 06/08/16 09:09 Diltiazem HCl (Cardizem) 60 mg QID PO 06/07/16 10:00 06/08/16 09:10 Aspirin (Ecotrin Ec) 325 mg DAILY PO 06/07/16 10:00 06/08/16 09:09 Digoxin (Lanoxin Inj) 0.5 mg DAILY IV PUSH 06/07/16 10:00 06/08/16 09:09 IV Flush (NS Flush) 2 ml BID IV FLUSH 06/07/16 21:00 06/08/16 09:09 Folic Acid (Folate) 1 mg DAILY PO 06/08/16 09:00 06/13/16 08:59 06/08/16 09:09 Thiamine HCl (Vitamin B1) 100 mg DAILY PO 06/07/16 17:45 06/08/16 09:09 Multivitamins/ Minerals Therapeutic (Theragran M Tab) 1 tab DAILY PO 06/07/16 17:45 06/12/16 17:44 06/08/16 09:10 Pantoprazole Sodium (Protonix) 40 mg DAILY PO 06/07/16 17:45 06/08/16 09:10 Lorazepam (Ativan) 2 mg Q2H PRN PO CIWA 11-14 06/07/16 17:45 06/08/16 10:39 Lorazepam (Ativan Inj) 2 mg Q2H PRN IV PUSH CIWA 11-14 06/07/16 17:45 06/07/16 18:33 Vital Signs / I&O Vital Signs Date Time Temp Pulse Resp B/P Pulse Ox O2 Delivery O2 Flow Rate FiO2 06/08/16 07:30 79 06/08/16 07:30 98.0 79 20 127/96 97 06/08/16 05:00 80 06/08/16 05:00 77 20 139/90 98 06/08/16 04:37 98.2 85 20 130/86 95 06/08/16 04:00 70 20 115/75 95 06/08/16 04:00 80 06/08/16 03:00 86 20 145/93 95 06/08/16 03:00 90 06/08/16 02:00 70 20 128/88 94 06/08/16 02:00 84 06/08/16 01:00 72 20 112/79 93 06/08/16 01:00 80 06/08/16 00:05 98.4 75 20 115/72 95 06/08/16 00:00 74 06/07/16 23:00 75 20 112/83 93 06/07/16 23:00 96 06/07/16 22:26 20 06/07/16 22:00 107 20 156/93 93 06/07/16 22:00 112 06/07/16 21:36 99 20 168/91 96 06/07/16 21:00 95 20 162/111 94 06/07/16 21:00 106 06/07/16 20:00 110 06/07/16 19:51 98.5 105 20 130/100 94 06/07/16 19:00 127 06/07/16 17:00 115 21 149/104 95 Nasal Cannula 3 06/07/16 16:00 112 25 137/105 95 Nasal Cannula 3 06/07/16 15:00 120 24 138/106 94 Nasal Cannula 3 06/07/16 14:00 114 25 150/112 95 Nasal Cannula 3 06/07/16 13:00 112 16 146/111 95 Nasal Cannula 3 06/07/16 12:00 108 18 162/101 95 Nasal Cannula 3 06/07/16 11:00 127 24 149/117 95 Nasal Cannula 3 I/O 06/07/16 06/07/16 06/07/16 06/08/16 06/08/16 06/08/16 07:00 15:00 23:00 07:00 15:00 23:00 Intake Total 2329 ml Output Total 3300 ml Balance -971 ml Intake Oral 650 ml IV Total 1679 ml Output Urine Total 3300 ml Emesis 0 ml # Bowel Movements 0 Physical Exam GENERAL: This is a well-nourished, well-developed patient, in no apparent distress. CARDIOVASCULAR: Regular rate and irregular rhythm without murmurs, gallops, or rubs. RESPIRATORY: Clear to auscultation. Breath sounds equal bilaterally. No wheezes , rales, or rhonchi. GASTROINTESTINAL: Abdomen soft, non-tender, nondistended. Normal, active bowel sounds MUSCULOSKELETAL: Extremities without clubbing, cyanosis, or edema. NEURO: Alert & Oriented x4 to person, place, time, situation. Moves all ext x4 Laboratory Laboratory Tests Test 06/08/16 03:19 White Blood Count 6.7 TH/MM3 Red Blood Count 4.14 MIL/MM3 Hemoglobin 14.1 GM/DL Hematocrit 40.5 % Mean Corpuscular Volume 97.8 FL Mean Corpuscular Hemoglobin 34.1 PG Mean Corpuscular Hemoglobin 34.9 % Concent Red Cell Distribution Width 13.8 % Platelet Count 194 TH/MM3 Mean Platelet Volume 8.9 FL Neutrophils (%) (Auto) 68.7 % Lymphocytes (%) (Auto) 19.8 % Monocytes (%) (Auto) 9.1 % Eosinophils (%) (Auto) 1.6 % Basophils (%) (Auto) 0.8 % Neutrophils # (Auto) 4.6 TH/MM3 Lymphocytes # (Auto) 1.3 TH/MM3 Monocytes # (Auto) 0.6 TH/MM3 Eosinophils # (Auto) 0.1 TH/MM3 Basophils # (Auto) 0.1 TH/MM3 CBC Comment DIFF FINAL Differential Comment Sodium Level 139 MEQ/L Potassium Level 3.3 MEQ/L Chloride Level 106 MEQ/L Carbon Dioxide Level 21.6 MEQ/L Anion Gap 11 MEQ/L Blood Urea Nitrogen 9 MG/DL Creatinine 1.27 MG/DL Estimat Glomerular Filtration 61 ML/MIN Rate Random Glucose 95 MG/DL Calcium Level 8.5 MG/DL Magnesium Level 1.9 MG/DL Total Bilirubin 1.4 MG/DL Aspartate Amino Transf 11 U/L (AST/SGOT) Alanine Aminotransferase 20 U/L (ALT/SGPT) Alkaline Phosphatase 57 U/L B-Type Natriuretic Peptide 307 PG/ML Total Protein 5.6 GM/DL Albumin 3.0 GM/DL Imaging Last Impressions Chest X-Ray 06/06/16 1613 Signed Impressions: Service Date/Time: May 16:20 - CONCLUSION: 1. Small right pleural-based opacity likely representing a small pleural effusion with associated atelectasis at the right base. 2. Mildly enlarged cardiac silhouette. Emerson Carvalho MD Lung Scan-VQ Nuclear Medicine 06/06/16 0000 Signed Impressions: Service Date/Time: May 20:08 - CONCLUSION: Homogeneous perfusion. Study is low probability for pulmonary embolus. Emerson Bower MD Assessment and Plan Problem List: (1) Cardiomyopathy Assessment and Plan: likely alcholic and or tachycardic; for nuc stress today; change oral dilt to coreg and added low dose lisinopril (2) Atrial fibrillation with RVR Assessment and Plan: currently controlled, likely not a candidate for anticoagulation due to heavy Etoh use, fairly low chads-vas score though w/ low LVEF would likely get an extra point for chf. (3) Alcohol abuse Assessment and Plan: counseled at length Kristian Cohn MD Jun 08, 2016 10:51
[2016-06-08] MEDS ORDERED: REGADENOSON INJ 0.4 MG/5 ML SYR ONE (13:33)
--- NOTE | 2016-06-08 14:20 | EKG ---
Date Performed: 06/08/2016 Time Performed: 05:24:44 PTAGE: 46 years EKG: Atrial fibrillation Frequent ventricular ectopic beats Rather marked T wave inversion acros s the precordium and in leads I and II which may suggest myocardial ischemia Compared to the previous tracing the ventricular response to the atrial fibrillation is now controlled. The ventriclar ectopy is new. The T wave changes anteriorly are much more extensive. T wave changes were seen on prior tra cing. Clinical correlation is recommended. Abnormal ECG PREVIOUS TRACING : 06/06/2016 15.38 DOCTOR: Дмитрий Mcgill Interpretating Date/Time 06/08/2016 14:19:39
--- NOTE | 2016-06-08 14:42 | RADRPT ---
EXAM DATE/TIME: 06/08/2016 12:27 [facility] COMPARISON: No previous studies available for comparison. INDICATIONS : Mid chest pain with shortness of breath for two weeks. Atrial fibrillation. Coronary artery disease. DOSE: 25.4 mCi Tc99m Myoview at stress. 8.7 mCi Tc99m Myoview at rest. 0.4 mg Lexiscan STRESS SYMPTOMS: Dyspnea. EJECTION FRACTION: 32% MEDICAL HISTORY : None SURGICAL HISTORY : Appendectomy. ENCOUNTER: Initial ACUITY: 2 weeks PAIN SCALE: 3/10 LOCATION: Midsternal chest TECHNIQUE: The patient underwent pharmacologic stress with infusion of prescribed dose. Continuous ECG tracing was monitored during stress. Gated SPECT imaging was performed after stress and conventional SPECT i maging was performed at rest. The examination was performed on a SPECT/CT scanner, both attenuation and non-corrected datasets were reviewed. FINDINGS: DISTRIBUTION: The maximum perfused segment at stress is in the inferior wall. PERFUSION STUDY: There appears to be normal perfusion of the lateral and inferior wall. There is decreased perfusion t hroughout the anterior and septal ware on the stress and rest images. GATED STUDY: There is global hypokinesis with a reduced ejection fraction. CONCLUSION: 1. No definite areas of ischemia are seen. 2. Decreased perfusion at the anterior and septal ware on stress and rest images. 3. Global hypokinesis with a reduced ejection fraction at 32%. RISK CATEGORY: Intermediate (1-3% Annual Mortality Rate) Emerson Ybarra MD on June 08, 2016 at 14:37 Board Certified Radiologist. This report was verified electronically.
[2016-06-08] MEDS: LISINOPRIL 5 MG TAB PO SCH (17:17)
[2016-06-08] MEDS: CARVEDILOL 6.25 MG TAB PO SCH ×2 (17:17→20:43)
[2016-06-08] MEDS: LORazepam 2 MG/ML VIAL IV PUSH PRN (20:44)
[2016-06-08] MEDS: SODIUM CHLOR 0.9% 1000 ML INJ 1,000 ML IV SCH (21:20)
[2016-06-09] VITALS (23 sets, daily range): BP systolic 118–159; BP diastolic 77–100; PULSE 72–120; RESP 18–20; TEMP 98–98.6; O2SAT 95–96
[2016-06-09] MEDS: DILTIAZEM INJ 125 MG in SODIUM CHLORIDE 0.9% INJ 100 ML IV SCH (01:08)
[2016-06-09] MEDS: LORazepam 2 MG/ML VIAL IV PUSH PRN (03:51)
[2016-06-09] MEDS ORDERED: VITA100T2 PO (07:36)
[2016-06-09] MEDS ORDERED: PANT40TA3 PO (07:36)
[2016-06-09] MEDS ORDERED: SYMB160A INH (07:36)
[2016-06-09] MEDS ORDERED: LISI-519 PO (07:36)
[2016-06-09] MEDS ORDERED: THERM PO (07:36)
[2016-06-09] MEDS ORDERED: SPIR25TA PO (07:36)
[2016-06-09] MEDS ORDERED: FOLI1TAB4 PO (07:36)
[2016-06-09] MEDS ORDERED: CARV6.25 PO (07:36)
[2016-06-09] MEDS ORDERED: LORA-373 PO (07:37)
--- NOTE | 2016-06-09 07:38 | HHI.DS ---
Discharge Summary Admission Date Jun 06, 2016 at 18:35 Discharge Date: Jun 11, 2016 Admitting Diagnosis dyspnea; new onset AFib; Afib c RVR; elevated Ddimer; elevated BNP (1) New onset a-fib ICD Code: I48.91 Diagnosis: Principal (2) Elevated d-dimer ICD Code: R79.89 Diagnosis: Principal (3) Elevated brain natriuretic peptide (BNP) level ICD Code: R79.89 Diagnosis: Principal (4) Pleural effusion ICD Code: J90 Diagnosis: Principal (5) Renal insufficiency ICD Code: N28.9 Diagnosis: Principal (6) Acute CHF ICD Code: I50.9 Diagnosis: Principal (7) Atrial fibrillation with RVR ICD Code: I48.91 Diagnosis: Principal (8) Cardiomyopathy ICD Code: I42.9 Diagnosis: Principal (9) Dyspnea ICD Code: R06.00 Diagnosis: Principal (10) Alcohol abuse ICD Code: F10.10 Diagnosis: Principal Procedures JEAN CARLOS by Dr Kaminski Brief History - From Admission This is a 46-year-old male with no significant PMH who presented to the ER with complaints of SOB x2 wks. States has been having nasal congestion x2 wks, started taking Mucinex w/ no improvement, now w/ worsening SOB and c/o palpitations. Denies cough, chest pain, fever or sick contacts. On arrival, noted to be in Afib w/ RVR, HR 170's, BP 177/120 s/p Cardizem IV x2 doses w/ some improvement, currently on Cardizem gtt. No h/o A-fib. WBC 11.2. Creatinine 1.50, no previous labs for comparison. BNP 553. D-dimer 1.15, V/Q Scan pending. CXR with small right pleural based opacity likely small pleural effusion with atelectasis at right base, mildly enlarged cardiac silhouette. CBC/BMP: 06/08/16 0319 06/08/16 0319 Significant Findings Laboratory Tests Test 06/06/16 06/07/16 06/07/16 06/08/16 16:20 04:10 05:42 03:19 White Blood Count 11.2 TH/MM3 (4.0-11.0) Neutrophils (%) (Auto) 72.4 % 71.5 % (16.0-70.0) (16.0-70.0) Neutrophils # (Auto) 8.1 TH/MM3 (1.8-7.7) Prothrombin Time 13.4 SEC (9.8-11.6) D-Dimer Quantitative (PE/DVT) 1.15 MG/L FEU (0.00-0.50) Anion Gap 16 MEQ/L (5-15) Creatinine 1.50 MG/DL (0.60-1.30) Estimat Glomerular Filtration 51 ML/MIN (>89) 60 ML/MIN (>89) 61 ML/MIN (>89) Rate B-Type Natriuretic Peptide 553 PG/ML 389 PG/ML 307 PG/ML (0-100) (0-100) (0-100) Urine Protein 30 mg/dL (NEG-TRACE) Urine Ketones 10 mg/dL (NEG) Urine Bacteria RARE /hpf (NONE) Urine Mucus FEW /lpf (OCC) Urine Cannabinoids Screen POS (NEG) Red Blood Count 4.24 MIL/MM3 4.14 MIL/MM3 (4.50-5.90) (4.50-5.90) Mean Corpuscular Hemoglobin 34.4 PG 34.1 PG (27.0-34.0) (27.0-34.0) Monocytes (%) (Auto) 9.3 % (0.0-8.0) 9.1 % (0.0-8.0) Carbon Dioxide Level 18.5 MEQ/L (21.0-32.0) Calcium Level 8.4 MG/DL (8.5-10.1) Total Bilirubin 1.6 MG/DL 1.4 MG/DL (0.2-1.0) (0.2-1.0) Aspartate Amino Transf 13 U/L (15-37) 11 U/L (15-37) (AST/SGOT) Total Protein 5.9 GM/DL 5.6 GM/DL (6.4-8.2) (6.4-8.2) Albumin 3.3 GM/DL 3.0 GM/DL (3.4-5.0) (3.4-5.0) Potassium Level 3.3 MEQ/L (3.5-5.1) Imaging Last Impressions Upper Extremity Ultrasound 06/10/16 0000 Signed Impressions: Service Date/Time: Friday, June 10, 2016 09:33 - CONCLUSION: Acute occlusive thrombus in the right basilic vein. Emerson Ybarra MD Myocardial Perfusion Scan [facility] 06/08/16 0600 Signed Impressions: Service Date/Time: Wednesday, June 08, 2016 12:27 - CONCLUSION: 1. No definite areas of ischemia are seen. 2. Decreased perfusion at the anterior and septal ware on stress and rest images. 3. Global hypokinesis with a reduced ejection fraction at 32%%. RISK CATEGORY: Intermediate (1-3%% Annual Mortality Rate) Emerson Ybarra MD Chest X-Ray 06/06/16 1613 Signed Impressions: Service Date/Time: May 16:20 - CONCLUSION: 1. Small right pleural-based opacity likely representing a small pleural effusion with associated atelectasis at the right base. 2. Mildly enlarged cardiac silhouette. Emerson Carvalho MD Lung Scan-V Nuclear Medicine 06/06/16 0000 Signed Impressions: Service Date/Time: May 20:08 - CONCLUSION: Homogeneous perfusion. Study is low probability for pulmonary embolus. Emerson Bower MD PE at Discharge GENERAL: Middle-aged male, well nourished, well developed, with tremors, anxious. HEENT: PERRLA, EOMI. No scleral icterus or conjunctival pallor. No lid lag or facial droop. CARDIOVASCULAR: Irregularly irregular, in A. fib, HR 120s. No obvious murmurs to auscultation. No chest tenderness to palpation. RESPIRATORY: Decreased breath sounds, crackles bibasilar. No obvious rhonchi or wheezing. GASTROINTESTINAL: Abdomen soft, non-tender, nondistended. BS normal. MUSCULOSKELETAL: Extremities without clubbing, cyanosis. 1+ pitting edema. No obvious deformities. NEUROLOGICAL: Awake, alert and oriented x4. No focal neurologic deficits. Moving both upper and lower extremities spontaneously. Hospital Course New Onset Afib w/ RVR: on arrival, noted to be in A-fib w/ RVR, HR 170's, s/p Cardizem IV x2, currently on Cardizem gtt, HR 120-130's. Received Lopressor IV. Currently off cardizem drip. Restart cardizem PO. Carvedilol dose optimized to 25 mg po bid, continue. Continue digoxin to PO 0.25 mg daily. Consult Cardiology, appreciate recommendations. Urine drug screen + for cannabis. 05/13 Off cardizem drip, HR in 120s when he moves, will increase metoprolol. Still with Afib HR 90-140 and 4 beats of Vtach overnight. Consult EP per cardio. Patient need life vest , however doesn't have insurance, CM is following. A fib better controlled. JEAN CARLOS today 06/11 consistent with evidence of LA thrombus. Anticoagulation with Savaysa. DC cardioversion later if necessary. Echo in 3 mo to reevaluate LV fx. Will check K and mag. Replace, keep K > 4 and Mag> 2. Monitor on tele. Elevated D-dimer: 1.15, possibly related to leukocytosis. NO PE-V/Q scan neg. Evidence of heart failure on exam/labs/imaging-possibly trigger for A-fib. TSH normal. Trop 0.03. Elevated BNP. Congestive cardiomyopathy, likely related to EtOH use. BNP 553. CXR w/ small right pleural effusion ECHO reviewed and findings discussed with the patient patient with cardiomyopathy, reduced EF 25-30% diffuse hypokinesis. Repeat BNP trending down Lexiscan 06/08 reviewed and findings discussed with Dr Cohn cardiology. Continue beta efren, digox, lisinopril, aldactone. Discussed with the patient at length. Patient says she is drinking 12 pack beers daily and started drinking at early age. Continue CIWA protocol. Counselled at length. CM-ETOH consult as well. Pleural Effusion: Small right pleural effusion on CXR w/ enlarged cardiac silhouette, images reviewed by me. Evidence of heart failure on exam/labs/ imaging as above, unclear etiology. Echo as above. TSH normal. Cardiology is following, appreciate recommendations. Upper extremity edema and pain. Will do doppler US to r/o PE. DC IV lines. Alcohol withdrawals. Counselled excessively. On CIWA protocol. MVI/agrza/ thymmine. Monitor for seizures. Tobacco use. Counselled. Nicotine patch. Renal Insufficiency: Creatinine 1.50, no previous labs for comparison. Check U /a normal no UTI, caution w/ IVF in light of clinical CHF, repeat labs in am. DVT Prophylaxis: SCD/Teds. CM for d/c planning as needed. Discussed with patient, nurse. Patient need life vest at [place], CM consult, patient doesn't have insurance Discussed with Dr Rosen cardiology appreciate recommendations. Discharge Planning Cleared by cardiology for DC. Patient improved, life vest at [place] per case management arrangement. To follow up with PCP and consultants as OP. Discussed with the patient at length regarding discharge plan. Also discussed with the case management, nurse, and Dr Rosen cardiology Pt Condition on Discharge: Stable Discharge Disposition: Discharge Home Discharge Time: > 30 minutes Discharge Instructions Follow up Referrals: Cardiology - 1 Week PCP Follow-up - 3-5 Days with Olesya Savage MD New Medications: Edoxaban (Savaysa) 60 Mg Tab 60 MG PO DAILY Blood Clot Prevention #30 Ref 0 TAB Lorazepam (Lorazepam) 0.5 Mg Tab 0.5 MG PO Q6H PRN ANXIETY #15 Ref 0 TAB Nicotine Patch (Nicotine Patch) 21 Mg/24 Hr Patch 21 MG T-DERMAL DAILY Smoking Cessation #30 Ref 0 PATCH Spironolactone (Spironolactone) 25 Mg Tab 25 MG PO DAILY Blood Pressure Management #30 Ref 0 TAB Budesonide-Formoterol Inh (Symbicort Inh) 160-4.5 Mcg/Act Aero 2 PUFF INH Q12HR Shortness of Breath #30 INHALER Carvedilol (Coreg) 12.5 Mg Tab 25 MG PO Q12HR Blood Pressure Management #60 TAB Digoxin (Digoxin) 0.25 Mg Tab 0.25 MG PO DAILY afib #30 TAB Diltiazem (Cardizem) 30 Mg Tab 30 MG PO QID a fib #120 TAB Folic Acid (Folate) 1 Mg Tab 1 MG PO DAILY mvi #30 TAB Lisinopril (Lisinopril) 5 Mg Tab 5 MG PO DAILY Blood Pressure Management #30 TAB Multiple Vitamins W/ Minerals (Thera M Plus) 1 Tab 1 TAB PO DAILY mvi #31 TAB Pantoprazole (Pantoprazole) 40 Mg Tab 40 MG PO DAILY gerd #30 TAB Thiamine (Vitamin B-1) 100 Mg Tab 100 MG PO DAILY mvi #30 TAB Katrin Werner MD Jun 09, 2016 07:38
[2016-06-09] MEDS ORDERED: ASPI325T PO (07:51)
--- NOTE | 2016-06-09 09:21 | HHI.PR ---
Subjective Remarks Patient had. He has shortness of breath, less palpitations. Coughing less. No chest pain. Denies fevers, or chills. Denies nausea, vomiting,. Still on Cardizem drip, weaning down Objective Vitals Vital Signs Date Time Temp Pulse Resp B/P Pulse Ox O2 Delivery O2 Flow Rate FiO2 06/09/16 06:00 80 06/09/16 05:00 80 06/09/16 04:00 98.5 90 20 118/92 96 06/09/16 04:00 90 06/09/16 03:00 80 06/09/16 02:00 90 06/09/16 01:00 80 06/09/16 00:00 98.0 104 20 121/77 96 06/09/16 00:00 104 06/08/16 23:00 80 06/08/16 22:00 80 06/08/16 21:00 98.0 93 20 136/89 96 06/08/16 20:00 93 06/08/16 19:00 93 06/08/16 16:00 100 06/08/16 16:00 98.0 100 20 142/92 96 06/08/16 11:30 98.0 93 20 128/90 97 06/08/16 11:30 93 I/O 06/08/16 06/08/16 06/08/16 06/09/16 06/09/16 06/09/16 07:00 15:00 23:00 07:00 15:00 23:00 Intake Total 2329 ml 1892 ml 1740 ml Output Total 3300 ml 1045 ml 825 ml Balance -971 ml 847 ml 915 ml Intake Oral 650 ml 960 ml 420 ml IV Total 1679 ml 932 ml 1320 ml Output Urine Total 3300 ml 1045 ml 825 ml Emesis 0 ml 0 ml # Bowel Movements 0 0 0 Result Diagram: 06/08/1631806/08/16318 Imaging Last Impressions Myocardial Perfusion Scan Nuc Med 06/08/16 06 Signed Impressions: Service Date/Time: Wednesday, June 08, 2016 12:27 - CONCLUSION: 1. No definite areas of ischemia are seen. 2. Decreased perfusion at the anterior and septal ware on stress and rest images. 3. Global hypokinesis with a reduced ejection fraction at 32%%. RISK CATEGORY: Intermediate (1-3%% Annual Mortality Rate) Emerson Ybarra MD Chest X-Ray 06/06/16 1613 Signed Impressions: Service Date/Time: May 16:20 - CONCLUSION: 1. Small right pleural-based opacity likely representing a small pleural effusion with associated atelectasis at the right base. 2. Mildly enlarged cardiac silhouette. Emerson Carvalho MD Lung Scan-V Nuclear Medicine 06/06/16 0000 Signed Impressions: Service Date/Time: May 20:08 - CONCLUSION: Homogeneous perfusion. Study is low probability for pulmonary embolus. Emerson Bower MD Objective Remarks GENERAL: Middle-aged male, well nourished, well developed, with tremors, anxious. HEENT: PERRLA, EOMI. No scleral icterus or conjunctival pallor. No lid lag or facial droop. CARDIOVASCULAR: Irregularly irregular, in A. fib, HR 120s. No obvious murmurs to auscultation. No chest tenderness to palpation. RESPIRATORY: Decreased breath sounds, crackles bibasilar. No obvious rhonchi or wheezing. GASTROINTESTINAL: Abdomen soft, non-tender, nondistended. BS normal. MUSCULOSKELETAL: Extremities without clubbing, cyanosis. 1+ pitting edema. No obvious deformities. NEUROLOGICAL: Awake, alert and oriented x4. No focal neurologic deficits. Moving both upper and lower extremities spontaneously. A/P Problem List: (1) New onset a-fib ICD Code: I48.91 Status: Acute (2) Elevated d-dimer ICD Code: R79.89 Status: Acute (3) Elevated brain natriuretic peptide (BNP) level ICD Code: R79.89 Status: Acute (4) Pleural effusion ICD Code: J90 Status: Acute (5) Renal insufficiency ICD Code: N28.9 Status: Acute Assessment and Plan New Onset Afib w/ RVR: on arrival, noted to be in A-fib w/ RVR, HR 170's, s/p Cardizem IV x2, currently on Cardizem gtt, HR 120-130's. Received Lopressor IV. Currently on cardizem drip wean off cardizem drip , cardizem PO DCd, increase carvedilol to 12.5 bid , change digoxin to PO 0.25 mg daily. Consult Cardiology, appreciate recommendations. Elevated D-dimer: 1.15, possibly related to leukocytosis. NO PE-V/Q scan neg. Evidence of heart failure on exam/labs/imaging-possibly trigger for A-fib. TSH normal. Trop 0.03. Elevated BNP. Congestive cardiomyopathy, likely related to EtOH use. BNP 553. CXR w/ small right pleural effusion ECHO reviewed and findings discussed with the patient patient with cardiomyopathy, reduced EF 25-30% diffuse hypokinesis. Repeat BNP trending down Lexiscan 06/08 reviewed and findings discussed with Dr Cohn cardiology. Continue beta efren, digox, lisinopril, aldactone. Discussed with the patient at length. Patient says she is drinking 12 pack beers daily and started drinking at early age. Continue CIWA protocol. Counselled at length. CM-ETOH consult as well. Pleural Effusion: Small right pleural effusion on CXR w/ enlarged cardiac silhouette, images reviewed by me. Evidence of heart failure on exam/labs/ imaging as above, unclear etiology. Echo as above. TSH normal. Cardiology is following, appreciate recommendations. Renal Insufficiency: Creatinine 1.50, no previous labs for comparison. Check U /a normal no UTI, caution w/ IVF in light of clinical CHF, repeat labs in am. DVT Prophylaxis: SCD/Teds. CM for d/c planning as needed. Discussed with patient, nurse, Dr Cohn cardiology Katrin Werner MD Jun 09, 2016 09:21
[2016-06-09] MEDS: MULTIVITAMINS/MINERALS THERAPEUTIC TAB PO SCH (09:52)
[2016-06-09] MEDS: PANTOPRAZOLE SOD 40 MG DELAYED RELEASE TAB PO SCH (09:52)
[2016-06-09] MEDS: ASPIRIN EC 325 MG TABEC PO SCH (09:52)
[2016-06-09] MEDS: LISINOPRIL 5 MG TAB PO SCH (09:53)
[2016-06-09] MEDS: THIAMINE HCL 100 MG TAB PO SCH (09:53)
[2016-06-09] MEDS: FOLIC ACID 1 MG TAB PO SCH (09:53)
[2016-06-09] MEDS: BUDESONIDE-FORMOTEROL 160/4.5 MCG INHALER INH SCH ×2 (09:53→20:56)
[2016-06-09] MEDS: SPIRONOLACTONE 25 MG TAB PO SCH (09:53)
[2016-06-09] MEDS: SODIUM CHLORIDE 0.9% FLUSH 5 ML FLUSH IV FLUSH SCH ×2 (09:54→20:57)
[2016-06-09] MEDS: DIGOXIN 0.25 MG TAB PO SCH (09:57)
--- NOTE | 2016-06-09 10:18 | PD.CARD.PN ---
Subjective Subjective Remarks Rates still a bit fast, still on ggt. Objective Medications Administered Medications Medications (Trade) Dose Ordered Sig/Ade Route PRN Reason Start Time Stop Time Status Last Admin Dose Admin Diltiazem HCl 27 mg 27 mg ONCE PRN IV PUSH RESPONSE 06/06/16 16:45 06/06/16 16:55 Diltiazem HCl 125 mg/Sodium Chloride 125 ml @ 0 mls/hr TITRATE IV 06/06/16 17:15 06/09/16 01:08 Sodium Chloride (NS 1000 ml Inj) 1,000 ml @ 100 mls/hr Q10H IV 06/06/16 19:20 06/07/16 21:52 Acetaminophen/ Hydrocodone Bitart ([place] 5-325 Mg) 1 tab Q4H PRN PO PAIN SCALE 3 TO 5 06/06/16 19:30 06/07/16 21:50 Budesonide/ Formoterol Fumarate (Symbicort 160-4.5 Inh) 2 puff Q12HR INH 06/06/16 21:00 06/09/16 09:53 Aspirin (Ecotrin Ec) 325 mg DAILY PO 06/07/16 10:00 06/09/16 09:52 IV Flush (NS Flush) 2 ml BID IV FLUSH 06/07/16 21:00 06/09/16 09:54 Folic Acid (Folate) 1 mg DAILY PO 06/08/16 09:00 06/13/16 08:59 06/09/16 09:53 Thiamine HCl (Vitamin B1) 100 mg DAILY PO 06/07/16 17:45 06/09/16 09:53 Multivitamins/ Minerals Therapeutic (Theragran M Tab) 1 tab DAILY PO 06/07/16 17:45 06/12/16 17:44 06/09/16 09:52 Pantoprazole Sodium (Protonix) 40 mg DAILY PO 06/07/16 17:45 06/09/16 09:52 Lorazepam (Ativan) 1 mg Q4H PRN PO CIWA 8 - 10 06/07/16 17:45 06/08/16 17:16 Lorazepam (Ativan) 2 mg Q2H PRN PO CIWA 11-14 06/07/16 17:45 06/08/16 10:39 Lorazepam (Ativan Inj) 2 mg Q2H PRN IV PUSH CIWA 11-14 06/07/16 17:45 06/09/16 03:51 Spironolactone (Aldactone) 25 mg DAILY PO 06/09/16 09:00 06/09/16 09:53 Lisinopril (Prinivil) 5 mg DAILY PO 06/08/16 12:00 06/09/16 09:53 Digoxin (Lanoxin) 0.25 mg DAILY PO 06/09/16 10:00 06/09/16 09:57 Vital Signs / I&O Vital Signs Date Time Temp Pulse Resp B/P Pulse Ox O2 Delivery O2 Flow Rate FiO2 06/09/16 06:00 80 06/09/16 05:00 80 06/09/16 04:00 98.5 90 20 118/92 96 06/09/16 04:00 90 06/09/16 03:00 80 06/09/16 02:00 90 06/09/16 01:00 80 06/09/16 00:00 98.0 104 20 121/77 96 06/09/16 00:00 104 06/08/16 23:00 80 06/08/16 22:00 80 06/08/16 21:00 98.0 93 20 136/89 96 06/08/16 20:00 93 06/08/16 19:00 93 06/08/16 16:00 100 06/08/16 16:00 98.0 100 20 142/92 96 06/08/16 11:30 98.0 93 20 128/90 97 06/08/16 11:30 93 I/O 06/08/16 06/08/16 06/08/16 06/09/16 06/09/16 06/09/16 07:00 15:00 23:00 07:00 15:00 23:00 Intake Total 2329 ml 1892 ml 1740 ml Output Total 3300 ml 1045 ml 825 ml Balance -971 ml 847 ml 915 ml Intake Oral 650 ml 960 ml 420 ml IV Total 1679 ml 932 ml 1320 ml Output Urine Total 3300 ml 1045 ml 825 ml Emesis 0 ml 0 ml # Bowel Movements 0 0 0 Physical Exam GENERAL: This is a well-nourished, well-developed patient, in no apparent distress. CARDIOVASCULAR: Regular rate and irregular rhythm without murmurs, gallops, or rubs. RESPIRATORY: Clear to auscultation. Breath sounds equal bilaterally. No wheezes , rales, or rhonchi. GASTROINTESTINAL: Abdomen soft, non-tender, nondistended. Normal, active bowel sounds MUSCULOSKELETAL: Extremities without clubbing, cyanosis, or edema. NEURO: Alert & Oriented x4 to person, place, time, situation. Moves all ext x4 Imaging Last Impressions Myocardial Perfusion Scan Nuc Med 06/08/16 0600 Signed Impressions: Service Date/Time: Wednesday, June 08, 2016 12:27 - CONCLUSION: 1. No definite areas of ischemia are seen. 2. Decreased perfusion at the anterior and septal ware on stress and rest images. 3. Global hypokinesis with a reduced ejection fraction at 32%%. RISK CATEGORY: Intermediate (1-3%% Annual Mortality Rate) Emerson Ybarra MD Chest X-Ray 06/06/16 1613 Signed Impressions: Service Date/Time: May 16:20 - CONCLUSION: 1. Small right pleural-based opacity likely representing a small pleural effusion with associated atelectasis at the right base. 2. Mildly enlarged cardiac silhouette. Emerson Carvalho MD Lung Scan-VQ Nuclear Medicine 06/06/16 0000 Signed Impressions: Service Date/Time: May 20:08 - CONCLUSION: Homogeneous perfusion. Study is low probability for pulmonary embolus. Emerson Bower MD Assessment and Plan Problem List: (1) Cardiomyopathy Assessment and Plan: likely alcholic and or tachycardic; non-ischemic by nuc stress on bb/brit; he declined Life-vest (2) Atrial fibrillation with RVR Assessment and Plan: increased coreg to 12.5mg bid; likely not a candidate for anticoagulation due to heavy Etoh use, fairly low chads-vas score though w/ low LVEF would likely get an extra point for chf. (3) Alcohol abuse Assessment and Plan: counseled at length Assessment and Plan Dr. Rosen will return tomorrow to resume care Kristian Cohn MD Jun 09, 2016 10:18
[2016-06-09] MEDS ORDERED: CARVEDILOL 12.5 MG TAB PO ONE (10:30)
[2016-06-09] MEDS: REMOVE OLD NICODERM (NICOTINE) PATCH TD SCH (16:45)
[2016-06-09] MEDS: NICOTINE 21 MG/24 HR PATCH TD SCH (17:15)
[2016-06-09] MEDS ORDERED: CARVEDILOL 12.5 MG TAB PO SCH (21:00)
[2016-06-09] MEDS: LORazepam 2 MG TAB PO PRN (21:14)
[2016-06-10] VITALS (29 sets, daily range): BP systolic 91–147; BP diastolic 62–99; PULSE 66–135; RESP 16–26; TEMP 97.7–98.8; O2SAT 96–99
[2016-06-10] MEDS: SODIUM CHLOR 0.9% 1000 ML INJ 1,000 ML IV SCH (03:20)
--- NOTE | 2016-06-10 07:30 | HHI.PR ---
Subjective Remarks In bed says he is less sob. He is complaining of right hand swelling and pain, will do US doppler. Patient also says the room is cold and he has chills. No fever. No n/v/d/c. No much tremors. Off cardizem drip, HR in 120s when he moves , will increase metoprolol. Still with Afib HR 90-140 and 4 beats of Vtach overnight. Objective Vitals Vital Signs Date Time Temp Pulse Resp B/P Pulse Ox O2 Delivery O2 Flow Rate FiO2 06/10/16 04:20 98.0 135 20 143/88 96 06/10/16 02:11 123 06/10/16 00:04 112 06/10/16 00:00 98.0 121 20 120/87 96 06/09/16 20:00 98.0 105 20 124/100 96 06/09/16 18:00 98 06/09/16 17:00 88 06/09/16 16:00 98.0 96 18 159/97 96 06/09/16 16:00 96 06/09/16 15:00 72 06/09/16 14:00 80 06/09/16 13:00 90 06/09/16 12:00 98.4 86 18 121/83 96 06/09/16 12:00 86 06/09/16 11:00 88 06/09/16 10:00 100 06/09/16 09:00 98 06/09/16 08:00 98.6 86 18 129/86 95 06/09/16 08:00 92 06/09/16 08:00 88 I/O 06/09/16 06/09/16 06/09/16 06/10/16 06/10/16 06/10/16 07:00 15:00 23:00 07:00 15:00 23:00 Intake Total 1740 ml 1241 ml Output Total 825 ml 825 ml Balance 915 ml 416 ml Intake Oral 420 ml 920 ml IV Total 1320 ml 321 ml Output Urine Total 825 ml 825 ml Emesis 0 ml # Bowel Movements 0 0 Result Diagram: 06/08/1631806/08/16318 Imaging Last Impressions Myocardial Perfusion Scan Nuc Med 06/08/16 0600 Signed Impressions: Service Date/Time: Wednesday, June 08, 2016 12:27 - CONCLUSION: 1. No definite areas of ischemia are seen. 2. Decreased perfusion at the anterior and septal ware on stress and rest images. 3. Global hypokinesis with a reduced ejection fraction at 32%%. RISK CATEGORY: Intermediate (1-3%% Annual Mortality Rate) Emerson Ybarra MD Chest X-Ray 06/06/16 1613 Signed Impressions: Service Date/Time: May 16:20 - CONCLUSION: 1. Small right pleural-based opacity likely representing a small pleural effusion with associated atelectasis at the right base. 2. Mildly enlarged cardiac silhouette. Emerson Carvalho MD Lung Scan-V Nuclear Medicine 06/06/16 0000 Signed Impressions: Service Date/Time: May 20:08 - CONCLUSION: Homogeneous perfusion. Study is low probability for pulmonary embolus. Emerson Bower MD Objective Remarks GENERAL: Middle-aged male, well nourished, well developed, with tremors, anxious. HEENT: PERRLA, EOMI. No scleral icterus or conjunctival pallor. No lid lag or facial droop. CARDIOVASCULAR: Irregularly irregular, in A. fib, HR 120s. No obvious murmurs to auscultation. No chest tenderness to palpation. RESPIRATORY: Decreased breath sounds, crackles bibasilar. No obvious rhonchi or wheezing. GASTROINTESTINAL: Abdomen soft, non-tender, nondistended. BS normal. MUSCULOSKELETAL: Extremities without clubbing, cyanosis. 1+ pitting edema. No obvious deformities. NEUROLOGICAL: Awake, alert and oriented x4. No focal neurologic deficits. Moving both upper and lower extremities spontaneously. A/P Problem List: (1) New onset a-fib ICD Code: I48.91 Status: Acute (2) Elevated d-dimer ICD Code: R79.89 Status: Acute (3) Elevated brain natriuretic peptide (BNP) level ICD Code: R79.89 Status: Acute (4) Pleural effusion ICD Code: J90 Status: Acute (5) Renal insufficiency ICD Code: N28.9 Status: Acute Assessment and Plan New Onset Afib w/ RVR: on arrival, noted to be in A-fib w/ RVR, HR 170's, s/p Cardizem IV x2, currently on Cardizem gtt, HR 120-130's. Received Lopressor IV. Currently on cardizem drip wean off cardizem drip. Cardizem PO DCd Increase carvedilol to 25 mg po bid. Continue digoxin to PO 0.25 mg daily. Consult Cardiology, appreciate recommendations, seen by Dr Cohn. Urine drug screen + for canabis. Off cardizem drip, HR in 120s when he moves, will increase metoprolol. Still with Afib HR 90-140 and 4 beats of Vtach overnight. Consult EP per cardio. Patient need life vest , however doesn't have insurance. Will check K and mag. Replace, keep K > 4 and Mag> 2. Monitor on tele. Elevated D-dimer: 1.15, possibly related to leukocytosis. NO PE-V/Q scan neg. Evidence of heart failure on exam/labs/imaging-possibly trigger for A-fib. TSH normal. Trop 0.03. Elevated BNP. Congestive cardiomyopathy, likely related to EtOH use. BNP 553. CXR w/ small right pleural effusion ECHO reviewed and findings discussed with the patient patient with cardiomyopathy, reduced EF 25-30% diffuse hypokinesis. Repeat BNP trending down Lexiscan 06/08 reviewed and findings discussed with Dr Cohn cardiology. Continue beta efren, digox, lisinopril, aldactone. Discussed with the patient at length. Patient says she is drinking 12 pack beers daily and started drinking at early age. Continue CIWA protocol. Counselled at length. CM-ETOH consult as well. Pleural Effusion: Small right pleural effusion on CXR w/ enlarged cardiac silhouette, images reviewed by me. Evidence of heart failure on exam/labs/ imaging as above, unclear etiology. Echo as above. TSH normal. Cardiology is following, appreciate recommendations. Upper extremity edema and pain. Will do doppler US to r/o PE. DC IV lines. Alcohol withdrawals. Counselled excessively. On CIWA protocol. MVI/garza/ thymmine. Monitor for seizures. Tobacco use. Counselled. Nicotine patch. Renal Insufficiency: Creatinine 1.50, no previous labs for comparison. Check U /a normal no UTI, caution w/ IVF in light of clinical CHF, repeat labs in am. DVT Prophylaxis: SCD/Teds. CM for d/c planning as needed. Discussed with patient, nurse. Patient need life vest at [place], CM consult, patient doesn't have insurance Katrin Werner MD Jun 10, 2016 07:30
[2016-06-10] MEDS ORDERED: CARV12.5 PO (07:44)
[2016-06-10] MEDS ORDERED: NICO21DI2 T-DERMAL (07:44)
[2016-06-10] MEDS ORDERED: DIGO0.25 PO (07:47)
[2016-06-10] MEDS: BUDESONIDE-FORMOTEROL 160/4.5 MCG INHALER INH SCH ×2 (08:17→21:35)
[2016-06-10] MEDS: NICOTINE 21 MG/24 HR PATCH TD SCH (08:20)
[2016-06-10] MEDS: REMOVE OLD NICODERM (NICOTINE) PATCH TD SCH (08:21)
[2016-06-10] MEDS: THIAMINE HCL 100 MG TAB PO SCH (08:21)
[2016-06-10] MEDS: MULTIVITAMINS/MINERALS THERAPEUTIC TAB PO SCH (08:21)
[2016-06-10] MEDS: PANTOPRAZOLE SOD 40 MG DELAYED RELEASE TAB PO SCH (08:21)
[2016-06-10] MEDS: FOLIC ACID 1 MG TAB PO SCH (08:21)
[2016-06-10] MEDS: DIGOXIN 0.25 MG TAB PO SCH (08:21)
[2016-06-10] MEDS: LISINOPRIL 5 MG TAB PO SCH (08:22)
[2016-06-10] MEDS: ASPIRIN EC 325 MG TABEC PO SCH (08:22)
[2016-06-10] MEDS: SPIRONOLACTONE 25 MG TAB PO SCH (08:22)
[2016-06-10] MEDS: SODIUM CHLORIDE 0.9% FLUSH 5 ML FLUSH IV FLUSH SCH ×2 (08:22→21:35)
--- NOTE | 2016-06-10 08:22 | PD.CARD.PN ---
Subjective Subjective Remarks No CV complaints (Torsten Shaver) Objective Vital Signs / I&O Vital Signs Date Time Temp Pulse Resp B/P Pulse Ox O2 Delivery O2 Flow Rate FiO2 06/10/16 07:00 133 06/10/16 06:00 118 06/10/16 05:00 128 06/10/16 04:20 98.0 135 20 143/88 96 06/10/16 04:00 120 06/10/16 03:00 118 06/10/16 02:11 123 06/10/16 01:00 112 06/10/16 00:04 112 06/10/16 00:00 98.0 121 20 120/87 96 06/09/16 23:00 114 06/09/16 22:00 120 06/09/16 21:00 112 06/09/16 20:00 110 06/09/16 20:00 98.0 105 20 124/100 96 06/09/16 19:02 118 06/09/16 18:00 98 06/09/16 17:00 88 06/09/16 16:00 98.0 96 18 159/97 96 06/09/16 16:00 96 06/09/16 15:00 72 06/09/16 14:00 80 06/09/16 13:00 90 06/09/16 12:00 98.4 86 18 121/83 96 06/09/16 12:00 86 06/09/16 11:00 88 06/09/16 10:00 100 06/09/16 09:00 98 I/O 06/09/16 06/09/16 06/09/16 06/10/16 06/10/16 06/10/16 07:00 15:00 23:00 07:00 15:00 23:00 Intake Total 1740 ml 1241 ml 420 ml Output Total 825 ml 825 ml 650 ml Balance 915 ml 416 ml -230 ml Intake Oral 420 ml 920 ml 420 ml IV Total 1320 ml 321 ml Output Urine Total 825 ml 825 ml 650 ml Emesis 0 ml 0 ml # Bowel Movements 0 0 0 Physical Exam GENERAL: Well-nourished, well-developed patient in no apparent distress. NECK: No JVD. No carotid bruit. CARDIOVASCULAR: IR IR. tachycadia S1/S2 no murmur, rub, or gallop. RESPIRATORY: No accessory muscle use. Clear to auscultation. Breath sounds equal bilaterally. GASTROINTESTINAL: Abdomen soft, non-tender, nondistended. MUSCULOSKELETAL: Extremities without clubbing, cyanosis, or edema. (Torsten Shaver) Assessment and Plan Problem List: (1) Cardiomyopathy (2) Atrial fibrillation with RVR (3) Alcohol abuse Assessment and Plan A-fib - we are unable to control heart rate with medication and we will now consult EP cardiomyopathy - likely rate related, negative for ischemia and on good medical regimen (Torsten Shaver) Assessment and Plan NICM afib RVR still tachycardiac. will consult EP. med mgt vs ablation. LIfeVest? (Ronan Rosen MD) Torsten Shaver Jun 10, 2016 08:22 Ronan Rosen MD Jun 10, 2016 08:32
[2016-06-10] MEDS: CARVEDILOL 12.5 MG TAB PO SCH ×2 (08:27→21:33)
--- NOTE | 2016-06-10 10:22 | RADRPT ---
EXAM DATE/TIME: 06/10/2016 09:33 [place] COMPARISON: No previous studies available for comparison. INDICATIONS : Right arm swelling. MEDICAL HISTORY : Hernia, inguinal. Migraines. Chest pain. HTN. Dyspnea. Anxiety. Substance use. SURGICAL HISTORY : Appendectomy. Orthopedic surgery, left ring finger. ENCOUNTER: Initial ACUITY: 3 days PAIN SCORE: 10/10 LOCATION: Right arm. FINDINGS: There is acute appearing occlusive thrombus in the right basilic vein. There is spontaneous flow docu mented in the brachial, cephalic, axillary, and subclavian veins. The flow is phasic with respiratio n. Direction of flow in the jugular vein is caudal. CONCLUSION: Acute occlusive thrombus in the right basilic vein. Emerson Ybarra MD on June 10, 2016 at 10:17 Board Certified Radiologist. This report was verified electronically.
[2016-06-10] MEDS: DILTIAZEM INJ 125 MG in SODIUM CHLORIDE 0.9% INJ 100 ML IV SCH (10:27)
[2016-06-10] MEDS ORDERED: MAGNESIUM OXIDE 400 MG TAB PO ONE (12:15)
[2016-06-10] MEDS ORDERED: POTASSIUM CHLORIDE 20 MEQ CONTROLLED RELEASE TAB PO ONE (12:30)
[2016-06-10] MEDS: ENOXAPARIN SODIUM 80 MG/0.8 ML SYRINGE SQ SCH (12:46)
[2016-06-10 14:16] LABS: AUTOMATED NEUTROPHIL # 9.4 TH/MM3 (1.8-7.7); BASOPHIL # 0.1 TH/MM3 (0-0.2); BASOPHIL % 0.9 % (0.0-2.0); EOSINOPHIL # 0.1 TH/MM3 (0-0.4); EOSINOPHIL % 0.7 % (0.0-4.0); HEMATOCRIT 43.5 % (39.0-51.0); HEMO FLAGS DIFF FINAL; LYMPH % 9.3 % (9.0-44.0); LYMPHOCYTE # 1.1 TH/MM3 (1.0-4.8); MEAN CELL VOLUME 96.9 FL (80.0-100.0); MEAN CORPUSCULAR HEMOGLOBIN 33.4 PG (27.0-34.0); MEAN CORPUSCULAR HGB CONC 34.5 % (32.0-36.0); MONO % 7.1 % (0.0-8.0); PLATELET COUNT 206 TH/MM3 (150-450); RED BLOOD COUNT 4.49 MIL/MM3 (4.50-5.90); RED CELL DISTRIBUTION WIDTH 13.6 % (11.6-17.2); WHITE BLOOD COUNT 11.5 TH/MM3 (4.0-11.0)
[2016-06-10 14:42] LABS: ANION GAP 11 MEQ/L (5-15); BICARBONATE 20.5 MEQ/L (21.0-32.0); BLOOD UREA NITROGEN 13 MG/DL (7-18); CHLORIDE 105 MEQ/L (98-107); GLOMERULAR FILTRATION RATE 56 ML/MIN (>89); MAGNESIUM 1.9 MG/DL (1.5-2.5); SODIUM (NA) 136 MEQ/L (136-145)
[2016-06-10] MEDS: DILTIAZEM HCL 30 MG TAB PO SCH ×2 (17:50→21:34)
[2016-06-10 19:00] LABS: HEMOGLOBIN A1a 0.7 %; HEMOGLOBIN A1b 0.6 %; HEMOGLOBIN Ao 87.4 %; HEMOGLOBIN F 0.5 %; HEMOGLOBIN LA1C 2.3 %; HEMOGLOBIN P3 4.5 %
[2016-06-10] MEDS: ACETAMINOPHEN/HYDROcodone 325 MG/5 MG TAB PO PRN (21:34)
[2016-06-11] VITALS (18 sets, daily range): BP systolic 111–144; BP diastolic 69–100; PULSE 68–133; RESP 16–23; TEMP 97.4–98.2; O2SAT 96–100
[2016-06-11] MEDS: ENOXAPARIN SODIUM 80 MG/0.8 ML SYRINGE SQ SCH (00:29)
[2016-06-11] MEDS: ACETAMINOPHEN/HYDROcodone 325 MG/5 MG TAB PO PRN ×4 (02:15→17:09)
[2016-06-11 06:49] LABS: AUTOMATED NEUTROPHIL # 7.8 TH/MM3 (1.8-7.7); BASOPHIL # 0.1 TH/MM3 (0-0.2); BASOPHIL % 0.6 % (0.0-2.0); EOSINOPHIL # 0.2 TH/MM3 (0-0.4); EOSINOPHIL % 2.1 % (0.0-4.0); HEMATOCRIT 40.1 % (39.0-51.0); HEMO FLAGS DIFF FINAL; LYMPH % 13.9 % (9.0-44.0); LYMPHOCYTE # 1.5 TH/MM3 (1.0-4.8); MEAN CELL VOLUME 97.4 FL (80.0-100.0); MEAN CORPUSCULAR HGB CONC 34.9 % (32.0-36.0); MONO % 9.6 % (0.0-8.0); NEUT % 73.8 % (16.0-70.0); PLATELET COUNT 192 TH/MM3 (150-450); RED BLOOD COUNT 4.12 MIL/MM3 (4.50-5.90); RED CELL DISTRIBUTION WIDTH 13.7 % (11.6-17.2); WHITE BLOOD COUNT 10.6 TH/MM3 (4.0-11.0)
[2016-06-11 07:02] LABS: BICARBONATE 24.5 MEQ/L (21.0-32.0); POTASSIUM 4.5 MEQ/L (3.5-5.1)
--- NOTE | 2016-06-11 07:45 | HHI.PR ---
Subjective Remarks Feels much better today, no chest pain or shortness of breath, went for JEAN CARLOS. Denies nausea, vomiting, diarrhea or constipation. No diaphoresis. Since he has less tremors. No fever or chills. No cough. Objective Vitals Vital Signs Date Time Temp Pulse Resp B/P Pulse Ox O2 Delivery O2 Flow Rate FiO2 06/11/16 07:00 133 06/11/16 07:00 98.2 83 20 111/69 96 06/11/16 06:00 93 06/11/16 05:00 94 06/11/16 04:00 90 06/11/16 03:00 97.7 85 23 144/100 96 06/11/16 03:00 Automatic Cuff 06/11/16 03:00 84 06/11/16 02:00 94 06/11/16 01:00 68 06/11/16 00:00 82 06/10/16 23:00 97.7 69 18 91/62 98 06/10/16 23:00 66 06/10/16 22:00 90 06/10/16 21:37 97 21 06/10/16 21:00 86 06/10/16 20:00 84 06/10/16 19:00 98.4 96 26 141/96 98 06/10/16 19:00 105 06/10/16 18:00 90 06/10/16 17:00 100 06/10/16 16:00 84 06/10/16 15:00 98.8 77 16 121/71 96 06/10/16 15:00 82 06/10/16 14:00 89 06/10/16 13:00 76 06/10/16 12:00 106 06/10/16 11:30 98.5 114 18 137/98 99 06/10/16 11:00 122 06/10/16 10:00 112 06/10/16 09:00 130 06/10/16 08:00 132 I/O 06/10/16 06/10/16 06/10/16 06/11/16 06/11/16 06/11/16 07:00 15:00 23:00 07:00 15:00 23:00 Intake Total 420 ml 480 ml 240 ml Output Total 650 ml 900 ml 575 ml Balance -230 ml -420 ml -335 ml Intake Oral 420 ml 480 ml 240 ml Output Urine Total 650 ml 900 ml 575 ml Emesis 0 ml # Voids 2 # Bowel Movements 0 1 0 Result Diagram: 06/11/16 0603 06/11/16 0603 Imaging Last Impressions Upper Extremity Ultrasound 06/10/16 0000 Signed Impressions: Service Date/Time: Friday, June 10, 2016 09:33 - CONCLUSION: Acute occlusive thrombus in the right basilic vein. Emerson Ybarra MD Myocardial Perfusion Scan Nuc [facility] 06/08/16 0600 Signed Impressions: Service Date/Time: Wednesday, June 08, 2016 12:27 - CONCLUSION: 1. No definite areas of ischemia are seen. 2. Decreased perfusion at the anterior and septal ware on stress and rest images. 3. Global hypokinesis with a reduced ejection fraction at 32%%. RISK CATEGORY: Intermediate (1-3%% Annual Mortality Rate) Emerson Ybarra MD Chest X-Ray 06/06/16 1613 Signed Impressions: Service Date/Time: May 16:20 - CONCLUSION: 1. Small right pleural-based opacity likely representing a small pleural effusion with associated atelectasis at the right base. 2. Mildly enlarged cardiac silhouette. Emerson Carvalho MD Lung Scan-V Nuclear Medicine 06/06/16 0000 Signed Impressions: Service Date/Time: May 20:08 - CONCLUSION: Homogeneous perfusion. Study is low probability for pulmonary embolus. Emerson Bower MD Objective Remarks GENERAL: Middle-aged male, well nourished, well developed, with tremors, anxious. HEENT: PERRLA, EOMI. No scleral icterus or conjunctival pallor. No lid lag or facial droop. CARDIOVASCULAR: Irregularly irregular, in A. fib, HR 120s. No obvious murmurs to auscultation. No chest tenderness to palpation. RESPIRATORY: Decreased breath sounds, crackles bibasilar. No obvious rhonchi or wheezing. GASTROINTESTINAL: Abdomen soft, non-tender, nondistended. BS normal. MUSCULOSKELETAL: Extremities without clubbing, cyanosis. 1+ pitting edema. No obvious deformities. NEUROLOGICAL: Awake, alert and oriented x4. No focal neurologic deficits. Moving both upper and lower extremities spontaneously. A/P Problem List: (1) New onset a-fib ICD Code: I48.91 Status: Acute (2) Elevated d-dimer ICD Code: R79.89 Status: Acute (3) Elevated brain natriuretic peptide (BNP) level ICD Code: R79.89 Status: Acute (4) Pleural effusion ICD Code: J90 Status: Acute (5) Renal insufficiency ICD Code: N28.9 Status: Acute Assessment and Plan New Onset Afib w/ RVR: on arrival, noted to be in A-fib w/ RVR, HR 170's, s/p Cardizem IV x2, currently on Cardizem gtt, HR 120-130's. Received Lopressor IV. Currently off cardizem drip. Restart cardizem PO. Carvedilol dose optimized to 25 mg po bid, continue. Continue digoxin to PO 0.25 mg daily. Consult Cardiology, appreciate recommendations. Urine drug screen + for cannabis. 05/13 Off cardizem drip, HR in 120s when he moves, will increase metoprolol. Still with Afib HR 90-140 and 4 beats of Vtach overnight. Consult EP per cardio. Patient need life vest , however doesn't have insurance, CM is following. A fib better controlled. JEAN CARLOS today 06/11 consistent with evidence of LA thrombus. Anticoagulation with Savaysa. DC cardioversion later if necessary. Echo in 3 mo to reevaluate LV fx. Will check K and mag. Replace, keep K > 4 and Mag> 2. Monitor on tele. Elevated D-dimer: 1.15, possibly related to leukocytosis. NO PE-V/Q scan neg. Evidence of heart failure on exam/labs/imaging-possibly trigger for A-fib. TSH normal. Trop 0.03. Elevated BNP. Congestive cardiomyopathy, likely related to EtOH use. BNP 553. CXR w/ small right pleural effusion ECHO reviewed and findings discussed with the patient patient with cardiomyopathy, reduced EF 25-30% diffuse hypokinesis. Repeat BNP trending down Lexiscan 06/08 reviewed and findings discussed with Dr Cohn cardiology. Continue beta efren, digox, lisinopril, aldactone. Discussed with the patient at length. Patient says she is drinking 12 pack beers daily and started drinking at early age. Continue CIWA protocol. Counselled at length. CM-ETOH consult as well. Pleural Effusion: Small right pleural effusion on CXR w/ enlarged cardiac silhouette, images reviewed by me. Evidence of heart failure on exam/labs/ imaging as above, unclear etiology. Echo as above. TSH normal. Cardiology is following, appreciate recommendations. Upper extremity edema and pain. Will do doppler US to r/o PE. DC IV lines. Alcohol withdrawals. Counselled excessively. On CIWA protocol. MVI/garza/ thymmine. Monitor for seizures. Tobacco use. Counselled. Nicotine patch. Renal Insufficiency: Creatinine 1.50, no previous labs for comparison. Check U /a normal no UTI, caution w/ IVF in light of clinical CHF, repeat labs in am. DVT Prophylaxis: SCD/Teds. CM for d/c planning as needed. Discussed with patient, nurse. Patient need life vest at DC, CM consult, patient doesn't have insurance Discussed with Dr Rosen cardiology appreciate recommendations. Discharge Planning Cleared by cardiology for DC. Patient improved, needs life vest at DC. To follow up with PCP and consultants as OP. Katrin Werner MD Jun 11, 2016 07:45
[2016-06-11] MEDS: DIGOXIN 0.25 MG TAB PO SCH (08:19)
[2016-06-11] MEDS: MULTIVITAMINS/MINERALS THERAPEUTIC TAB PO SCH (08:19)
[2016-06-11] MEDS: CARVEDILOL 12.5 MG TAB PO SCH (08:19)
[2016-06-11] MEDS: ASPIRIN EC 325 MG TABEC PO SCH (08:19)
[2016-06-11] MEDS: FOLIC ACID 1 MG TAB PO SCH (08:19)
[2016-06-11] MEDS: LISINOPRIL 5 MG TAB PO SCH (08:19)
[2016-06-11] MEDS: SPIRONOLACTONE 25 MG TAB PO SCH (08:19)
[2016-06-11] MEDS: DILTIAZEM HCL 30 MG TAB PO SCH (08:19)
[2016-06-11] MEDS: SODIUM CHLORIDE 0.9% FLUSH 5 ML FLUSH IV FLUSH SCH (08:20)
[2016-06-11] MEDS: THIAMINE HCL 100 MG TAB PO SCH (08:20)
[2016-06-11] MEDS: REMOVE OLD NICODERM (NICOTINE) PATCH TD SCH (08:20)
[2016-06-11] MEDS: PANTOPRAZOLE SOD 40 MG DELAYED RELEASE TAB PO SCH (08:20)
[2016-06-11] MEDS: NICOTINE 21 MG/24 HR PATCH TD SCH (08:21)
[2016-06-11] MEDS: BUDESONIDE-FORMOTEROL 160/4.5 MCG INHALER INH SCH (08:21)
[2016-06-11] MEDS ORDERED: DILT31TA PO (08:52)
--- NOTE | 2016-06-11 08:52 | MB ---
cc: LEIAKATIE DOYLE DATE OF CONSULTATION 06/10/16 ELECTROPHYSIOLOGY CONSULTATION Mr. Lew is a 46-year-old white male with a history of alcoholism who presented with two week history of progressive dyspnea and palpitations. He has not had any chest pain. He was found to be in atrial fibrillation with rapid ventricular response with a heart rate in 170s. His echocardiogram showed moderate left ventricular systolic dysfunction likely secondary to tachycardia induced cardiomyopathy. His adenosine myocardial perfusion study showed no evidence of ischemia. PAST MEDICAL HISTORY Negative for hypertension, dyslipidemia, diabetes mellitus, coronary artery disease or CVA. History of appendectomy. MEDICATIONS At home: None. ALLERGIES None. SOCIAL HISTORY The patient smokes one pack a day. He drinks at least 12 pack everyday. FAMILY HISTORY Negative for heart disease. REVIEW OF SYSTEMS The review of systems is otherwise negative. PHYSICAL EXAMINATION VITAL SIGNS: Blood pressure 121/71, pulse 90 and irregular. HEENT: Negative. 2+ carotid upstrokes. No bruits. LUNGS: Clear. HEART: Irregular with no murmur or gallops. ABDOMEN: Soft, no bruits. EXTREMITIES: Without edema. 2+ distal pulses. NEUROLOGIC: Grossly nonfocal. CARDIOLOGY STUDIES EKG was reviewed and initially showed atrial fibrillation with rapid ventricular response. Heart rate of 171 beats per minute and mild nonspecific STT changes. Telemetry now shows atrial fibrillation with ventricular response between 90 and 110 beats per minute. LABORATORY DATA Hemoglobin 15.0, potassium 4.0, creatinine 1.4, AST 11, ALT 20, BNP 389. Troponin normal. BNP 533. DIAGNOSIS 1. Acute systolic congestive heart failure. 2. Cardiomyopathy with moderate left ventricular systolic dysfunction (tachycardia induced, alcoholic). 3. Atrial fibrillation with rapid ventricular response. 4. Heavy alcohol use. DISPOSITION Mr. Lew was found to have nonischemic cardiomyopathy, likely secondary to tachycardia and alcohol. His rate is now better controlled. I recommend to continue to titrate his medications for rate control. I recommend to cardiovert him after negative JEAN CARLOS and continue a short term off full anticoagulation. I believe his heart rate is controlled and if he stops drinking, he may stay in sinus rhythm long-term and his left ventricular function may improve. I recommend to recheck his left ventricular function in three months. This was discussed with the patient and he understands the situation. MD GUS Acosta /4:07 PM /7:49 AM MTDZahraa
[2016-06-11] MEDS ORDERED: MAGNESIUM OXIDE 400 MG TAB PO SCH (09:00)
--- NOTE | 2016-06-11 10:17 | PD.CARD.PN ---
Subjective Subjective Remarks no complaints doing well Objective Medications Active Medications Carvedilol (Coreg) 12.5 mg Q12HR PO; Start 06/11/16 at 21:00; Status UNV Diltiazem HCl (Cardizem) 30 mg QID PO Last administered on 06/11/16 08:19; Admin Dose 30 MG; Start 06/10/16 at 18:00; Stop 06/11/16 at 10:06; Status DC Edoxaban (Savaysa) 60 mg DAILY PO; Start 06/11/16 at 10:15; Status UNV Enoxaparin Sodium (Lovenox Inj) 70 mg Q12H SQ Last administered on 06/11/16 00: 29; Admin Dose 70 MG; Start 06/10/16 at 13:00; Stop 06/11/16 at 10:07; Status DC Magnesium Oxide (Mag-Ox) 400 mg DAILY PO Last administered on 06/11/16 08:18; Admin Dose 400 MG; Start 06/11/16 at 09:00 Magnesium Oxide (Mag-Ox) 400 mg ONCE ONCE PO Last administered on 06/10/16 12: 43; Admin Dose 400 MG; Start 06/10/16 at 12:15; Stop 06/10/16 at 12:22; Status DC Potassium Chloride (KCl) 20 meq ONCE ONCE PO Last administered on 06/10/16 12: 43; Admin Dose 20 MEQ; Start 06/10/16 at 12:30; Stop 06/10/16 at 12:34; Status DC Vital Signs / I&O Vital Signs Date Time Temp Pulse Resp B/P Pulse Ox O2 Delivery O2 Flow Rate FiO2 06/11/16 08:00 114 06/11/16 07:00 133 06/11/16 07:00 98.2 83 20 111/69 96 06/11/16 06:00 93 06/11/16 05:00 94 06/11/16 04:00 90 06/11/16 03:00 97.7 85 23 144/100 96 06/11/16 03:00 Automatic Cuff 06/11/16 03:00 84 06/11/16 02:00 94 06/11/16 01:00 68 06/11/16 00:00 82 06/10/16 23:00 97.7 69 18 91/62 98 06/10/16 23:00 66 06/10/16 22:00 90 06/10/16 21:37 97 21 06/10/16 21:00 86 06/10/16 20:00 84 06/10/16 19:00 98.4 96 26 141/96 98 06/10/16 19:00 105 06/10/16 18:00 90 06/10/16 17:00 100 06/10/16 16:00 84 06/10/16 15:00 98.8 77 16 121/71 96 06/10/16 15:00 82 06/10/16 14:00 89 06/10/16 13:00 76 06/10/16 12:00 106 06/10/16 11:30 98.5 114 18 137/98 99 06/10/16 11:00 122 I/O 06/10/16 06/10/16 06/10/16 06/11/16 06/11/16 06/11/16 07:00 15:00 23:00 07:00 15:00 23:00 Intake Total 420 ml 480 ml 240 ml Output Total 650 ml 900 ml 575 ml Balance -230 ml -420 ml -335 ml Intake Oral 420 ml 480 ml 240 ml Output Urine Total 650 ml 900 ml 575 ml Emesis 0 ml # Voids 2 # Bowel Movements 0 1 0 Physical Exam GENERAL: SKIN: Warm and dry. HEAD: Normocephalic. EYES: No scleral icterus. No injection or drainage. NECK: Supple, trachea midline. No JVD or lymphadenopathy. CARDIOVASCULAR: IR IR tachy. RESPIRATORY: Breath sounds equal bilaterally. No accessory muscle use. GASTROINTESTINAL: Abdomen soft, non-tender, nondistended. MUSCULOSKELETAL: No cyanosis, or edema. BACK: Nontender without obvious deformity. No CVA tenderness. Laboratory Laboratory Tests Test 06/10/16 06/11/16 13:45 06:03 White Blood Count 11.5 TH/MM3 10.6 TH/MM3 Red Blood Count 4.49 MIL/MM3 4.12 MIL/MM3 Hemoglobin 15.0 GM/DL 14.0 GM/DL Hematocrit 43.5 % 40.1 % Mean Corpuscular Volume 96.9 FL 97.4 FL Mean Corpuscular Hemoglobin 33.4 PG 34.0 PG Mean Corpuscular Hemoglobin 34.5 % 34.9 % Concent Red Cell Distribution Width 13.6 % 13.7 % Platelet Count 206 TH/MM3 192 TH/MM3 Mean Platelet Volume 9.0 FL 9.1 FL Neutrophils (%) (Auto) 82.0 % 73.8 % Lymphocytes (%) (Auto) 9.3 % 13.9 % Monocytes (%) (Auto) 7.1 % 9.6 % Eosinophils (%) (Auto) 0.7 % 2.1 % Basophils (%) (Auto) 0.9 % 0.6 % Neutrophils # (Auto) 9.4 TH/MM3 7.8 TH/MM3 Lymphocytes # (Auto) 1.1 TH/MM3 1.5 TH/MM3 Monocytes # (Auto) 0.8 TH/MM3 1.0 TH/MM3 Eosinophils # (Auto) 0.1 TH/MM3 0.2 TH/MM3 Basophils # (Auto) 0.1 TH/MM3 0.1 TH/MM3 CBC Comment DIFF FINAL DIFF FINAL Differential Comment Sodium Level 136 MEQ/L 138 MEQ/L Potassium Level 4.0 MEQ/L 4.5 MEQ/L Chloride Level 105 MEQ/L 105 MEQ/L Carbon Dioxide Level 20.5 MEQ/L 24.5 MEQ/L Anion Gap 11 MEQ/L 9 MEQ/L Blood Urea Nitrogen 13 MG/DL 14 MG/DL Creatinine 1.38 MG/DL 1.17 MG/DL Estimat Glomerular Filtration 56 ML/MIN 67 ML/MIN Rate Random Glucose 148 MG/DL 96 MG/DL Hemoglobin A1c 4.5 % Calcium Level 8.3 MG/DL 8.4 MG/DL Magnesium Level 1.9 MG/DL Imaging Last Impressions Myocardial Perfusion Scan Nuc Med 06/08/16 0600 Signed Impressions: Service Date/Time: Wednesday, June 08, 2016 12:27 - CONCLUSION: 1. No definite areas of ischemia are seen. 2. Decreased perfusion at the anterior and septal ware on stress and rest images. 3. Global hypokinesis with a reduced ejection fraction at 32%%. RISK CATEGORY: Intermediate (1-3%% Annual Mortality Rate) Emerson Ybarra MD Chest X-Ray 06/06/16 1613 Signed Impressions: Service Date/Time: May 16:20 - CONCLUSION: 1. Small right pleural-based opacity likely representing a small pleural effusion with associated atelectasis at the right base. 2. Mildly enlarged cardiac silhouette. Emerson Carvalho MD Lung Scan-VQ Nuclear Medicine 06/06/16 0000 Signed Impressions: Service Date/Time: May 20:08 - CONCLUSION: Homogeneous perfusion. Study is low probability for pulmonary embolus. Emerson Bower MD Assessment and Plan Problem List: (1) Cardiomyopathy (2) Atrial fibrillation with RVR (3) Alcohol abuse Assessment and Plan NICM afib RVR discussed case with Dr. Kaminski, EP. appreciate his assistance. Recommends JEAN CARLOS /DCC. on lovenox. transition to Savaysa (which is cost effective for uninsured due to assistance program) NPO after DCC, anticipate discharge today FU PCP cardiomyopathy secondary to ETOH and tachycardia. avoid ETOH. repeat echo in 3 months. Ronan Rosen MD Jun 11, 2016 10:17
[2016-06-11] MEDS ORDERED: MIDAZOLAM HCL 5 MG/5 ML VIAL ONE ×2 (10:25→11:00)
[2016-06-11] MEDS ORDERED: MIDAZOLAM HCL 2 MG/2 ML VIAL ONE (10:53)
[2016-06-11] MEDS ORDERED: EDOXABAN TOSYLATE 60 MG TAB PO SCH (11:00)
[2016-06-11] MEDS ORDERED: MISCELLANEOUS NURSING INFORMATION XX PRN (11:15)
[2016-06-11] MEDS ORDERED: EDOX1TAB5 PO (12:09)
--- NOTE | 2016-06-11 12:40 | ETE ---
Study Study Date:06/11/2016 STUDY CONCLUSIONS SUMMARY - Left ventricle: The cavity size was mildly dilated. Wall thickness was normal. Systolic function was severely reduced by visual assessment. The estimated ejection fraction was in the range of 25% to 30%. Diffuse hypokinesis. - Aortic valve: No evidence of vegetation. - Mitral valve: No evidence of vegetation. Mild regurgitation. - Left atrium: There was a thrombus in the appendage. The appendage was morphologically a left appendage, multilobulated, and of normal size. Emptying velocity was reduced. - Right atrium: No evidence of thrombus in the atrial cavity or appendage. - Tricuspid valve: No evidence of vegetation. Mild regurgitation. - Pulmonic valve: No evidence of vegetation. If LV function is below 40, please consider prescribing an ACEI or ARB or document rationale for non-use. PROCEDURE DATA Consent: The risks, benefits, and alternatives to the procedure were explained to the patient and informed consent was obtained. Procedure: Initial setup. The patient was brought to the laboratory in the fasting state. Intravenous access was obtained. Surface ECG leads and pulse oximetric signals were monitored. Sedation. Conscious sedation was administered by cardiology staff. Transesophageal echocardiography. Topical anesthesia was obtained using viscous lidocaine. A transesophageal probe was inserted by the attending dietitian teacher. Image quality was good. Study completion: All IVs inserted during the procedure were removed. The patient tolerated the procedure well. There were no complications. Transesophageal echocardiography. 2D, complete spectral Doppler, and color Doppler. CARDIAC ANATOMY LEFT VENTRICLE: The cavity size was mildly dilated. Wall thickness was normal. Systolic function was severely reduced by visual assessment. The estimated ejection fraction was in the range of 25% to 30%. Diffuse hypokinesis. AORTIC VALVE: Structurally normal valve. Trileaflet; normal thickness leaflets. Cusp separation was normal. No evidence of vegetation. Doppler: No significant regurgitation. Aorta: - There was no atheroma. There was no evidence for dissection. Aortic root: The aortic root was not dilated. Ascending aorta: The ascending aorta was normal in size. Aortic arch: The aortic arch was normal in size. Descending aorta: The descending aorta was normal in size. MITRAL VALVE: Structurally normal valve. Leaflet separation was normal. No evidence of vegetation. Doppler: Mild regurgitation. LEFT ATRIUM: The atrium was normal in size. There was a thrombus in the appendage. The appendage was morphologically a left appendage, multilobulated, and of normal size. Emptying velocity was reduced. RIGHT VENTRICLE: The cavity size was normal. Wall thickness was normal. Systolic function was normal. PULMONIC VALVE: Structurally normal valve. No evidence of vegetation. TRICUSPID VALVE: Structurally normal valve. Leaflet separation was normal. No evidence of vegetation. Doppler: Mild regurgitation. PULMONARY ARTERY: The main pulmonary artery was normal-sized. RIGHT ATRIUM: The atrium was normal in size. No evidence of thrombus in the atrial cavity or appendage. The appendage was morphologically a right appendage. PERICARDIUM: There was no pericardial effusion. DOPPLER MEASUREMENTS ADULT NORMAL Main pulmonary artery Pressure, S 24 mm Hg =30 Tricuspid valve Regurgitant peak velocity 187 cm/s Peak RV-RA gradient, S 14 mm Hg Maximal regurgitant velocity 187 cm/s Systemic veins Estimated CVP 10 mm Hg Right ventricle RV pressure, S 24 mm Hg <30 LEGEND: Mean values are shown as u=mean value. Asterisk (*) gleason values outside specified normal range. Prepared and signed by Ronan Rosen [id number]
--- NOTE | 2016-06-11 15:46 | HHI.PR ---
Subjective Remarks PROGRESS NOTE - ELECTROPHYSIOLOGY No CP or SOB, feels better Objective Vital Signs Date Time Temp Pulse Resp B/P Pulse Ox O2 Delivery O2 Flow Rate FiO2 06/11/16 14:00 79 06/11/16 13:00 88 06/11/16 12:00 86 06/11/16 11:58 97.9 89 16 121/72 96 06/11/16 11:08 96 21 06/11/16 11:00 80 06/11/16 10:00 102 06/11/16 09:00 116 06/11/16 08:00 114 06/11/16 07:00 133 06/11/16 07:00 98.2 83 20 111/69 96 06/11/16 06:00 93 06/11/16 05:00 94 06/11/16 04:00 90 06/11/16 03:00 97.7 85 23 144/100 96 06/11/16 03:00 Automatic Cuff 06/11/16 03:00 84 06/11/16 02:00 94 06/11/16 01:00 68 06/11/16 00:00 82 06/10/16 23:00 97.7 69 18 91/62 98 06/10/16 23:00 66 06/10/16 22:00 90 06/10/16 21:37 97 21 06/10/16 21:00 86 06/10/16 20:00 84 06/10/16 19:00 98.4 96 26 141/96 98 06/10/16 19:00 105 06/10/16 18:00 90 06/10/16 17:00 100 06/10/16 16:00 84 I/O 06/10/16 06/10/16 06/10/16 06/11/16 06/11/16 06/11/16 07:00 15:00 23:00 07:00 15:00 23:00 Intake Total 420 ml 480 ml 240 ml Output Total 650 ml 900 ml 575 ml Balance -230 ml -420 ml -335 ml Intake Oral 420 ml 480 ml 240 ml Output Urine Total 650 ml 900 ml 575 ml Emesis 0 ml # Voids 2 # Bowel Movements 0 1 0 Result Diagram: 06/11/16 0603 06/11/16 0603 Objective Remarks VSS Lungs clear Cor irreg No edema Medications and IVs Current Medications Medications (Trade) Dose Ordered Sig/Ade Route Start Time Stop Time Status Last Admin (Cardizem Inj) 27 mg ONCE PRN IV PUSH 06/06/16 16:45 06/06/16 16:55 (Dulcolax Supp) 10 mg DAILY PRN DC 06/06/16 19:30 (Tylenol) 650 mg Q6H PRN PO 06/06/16 19:30 (Jayess 5-325 Mg) 1 tab Q4H PRN PO 06/06/16 19:30 06/11/16 12:21 (Morphine Inj) 2 mg Q3H PRN IV 06/06/16 19:30 (Symbicort 160-4.5 Inh) 2 puff Q12HR INH 06/06/16 21:00 06/11/16 08:21 (NS Flush) 2 ml UNSCH PRN IV FLUSH 06/07/16 17:45 (NS Flush) 2 ml BID IV FLUSH 06/07/16 21:00 06/11/16 08:20 (Folate) 1 mg DAILY PO 06/08/16 09:00 06/13/16 08:59 06/11/16 08:19 (Vitamin B1) 100 mg DAILY PO 06/07/16 17:45 06/11/16 08:20 (Theragran M Tab) 1 tab DAILY PO 06/07/16 17:45 06/12/16 17:44 06/11/16 08:19 (Zofran Inj) 4 mg Q6H PRN IV 06/07/16 17:45 (Protonix) 40 mg DAILY PO 06/07/16 17:45 06/11/16 08:20 (Romazicon Inj) 0.2 mg Q1M PRN IV PUSH 06/07/16 17:45 (Ativan) 1 mg Q4H PRN PO 06/07/16 17:45 06/08/16 17:16 (Ativan Inj) 1 mg Q4H PRN IV PUSH 06/07/16 17:45 (Ativan) 2 mg Q2H PRN PO 06/07/16 17:45 06/09/16 21:14 (Ativan Inj) 2 mg Q2H PRN IV PUSH 06/07/16 17:45 06/09/16 03:51 (Ativan Inj) 2 mg Q1H PRN IV PUSH 06/07/16 17:45 (Ativan Inj) 2 mg Q15M PRN IV PUSH 06/07/16 17:45 (Aldactone) 25 mg DAILY PO 06/09/16 09:00 06/11/16 08:19 (Prinivil) 5 mg DAILY PO 06/08/16 12:00 06/11/16 08:19 (Lanoxin) 0.25 mg DAILY PO 06/09/16 10:00 06/11/16 08:19 (Habitrol 21 Mg Patch.24 Hr) 1 patch DAILY TD 06/09/16 16:45 06/11/16 08:21 Miscellaneous Information 1 DAILY TD 06/09/16 16:45 06/11/16 08:20 (Mag-Ox) 400 mg DAILY PO 06/11/16 09:00 06/11/16 08:18 (Coreg) 12.5 mg Q12HR PO 06/11/16 21:00 (Savaysa) 60 mg DAILY PO 06/11/16 11:00 06/11/16 12:25 Miscellaneous Information 1 UNSCH PRN XX 06/11/16 11:15 06/14/16 11:14 (Cardizem Cd) 180 mg DAILY PO 06/12/16 09:00 Assessment and Plan Problem List: (1) Acute CHF Status: Acute (2) Atrial fibrillation with RVR Status: Acute (3) Cardiomyopathy Status: Acute Assessment and Plan A fib better controlled. JEAN CARLOS today w evidence of LA thrombus. Anticoagulation w Savaysa. DC cardioversion later if necessary. Echo in 3 mo to reevaluate LV fx. Supriya Kaminski MD Jun 11, 2016 15:46
[2016-06-11] MEDS ORDERED: CARVEDILOL 12.5 MG TAB PO SCH (21:00)
[2016-06-12] MEDS ORDERED: DILTIAZEM-CD 180 MG CAP ER PO SCH (09:00)
== END 2016-06-11 17:40 | disposition home or self-care (01) | DRG 308 ==
LOC: NEPA 15:53 → NEDA 18:35 → NEDH 22:35 → HCIN 06-07 18:18
PROVIDERS: ADMIT Hospitalist; ATTEND Hospitalist
PROC: B24BZZ4 Ultrasonography of Heart with Aorta, Transesophageal (ICD-10-PCS; principal; 2016-06-11)
DX: I48.91 Unspecified atrial fibrillation (principal); I50.21 Acute systolic (congestive) heart failure; I42.0 Dilated cardiomyopathy; I51.3 Intracardiac thrombosis, not elsewhere classified; I82.611 Acute embolism and thrombosis of superficial veins of right upper extremity; I50.9 Heart failure, unspecified; F10.10 Alcohol abuse, uncomplicated; F17.210 Nicotine dependence, cigarettes, uncomplicated; F12.90 Cannabis use, unspecified, uncomplicated; N28.9 Disorder of kidney and ureter, unspecified; R79.89 Other specified abnormal findings of blood chemistry; I10 Essential (primary) hypertension
CPT/HCPCS: 71010; 76937; 78452; 78582; 80048; 80053; 80307; 81001; 82550; 82552; 82948; 83036; 83735; 83880; 84443; 84484; 85025; 85379; 85610; 85730; 93005; 93017; 93306; 93312; 93320; 93325; 93971; 96365; 96376; A9502; A9540; A9567; J1160; J1650; J1940; J2060; J2250; J2405; J2785; J3010; J7030